=== PATIENT | male | born 1980 | race Caucasian/White ===

== ENCOUNTER 2017-08-25 11:32 | Inpatient (IN) | payer MEDICAID, OTHER ==
[2017-08-25 12:17] LABS: ADD MAN DIFF? NO
[2017-08-25 12:22] LABS: ABNORMAL IP MESSAGE 1; BASOPHIL # 0.1 10^3/ul (0.0-0.1); HEMATOCRIT 47.4 % (42.0-52.0); LYMPHOCYTES # 0.7 10^3/ul (0.8-2.9); LYMPHOCYTES % 13.2 % (15.0-51.0); MEAN CORPUSCULAR HEMOGLOBIN 28.7 pg (29.0-33.0); MEAN CORPUSCULAR HGB CONC 33.8 g/dl (32.0-37.0); MEAN CORPUSCULAR VOLUME 84.9 fl (82.0-101.0); MEAN PLATELET VOLUME 11.9 fl (7.4-10.4); MONOCYTE # 0.5 10^3/ul (0.3-0.9); MONOCYTES % 9.6 % (0.0-11.0); NEUTROPHIL # 3.7 10^3/ul (1.6-7.5); NEUTROPHILS % 74.4 % (39.0-77.0); PLATELET COUNT 139 10^3/UL (140-415); POSITIVE DIFF @See below; RED BLOOD COUNT 5.58 10^6/ul (4.70-6.10); RED CELL DISTRIBUTION WIDTH 13.7 % (11.5-14.5)
[2017-08-25] MEDS: SOD CHLORIDE 0.9% 500 ML IV ×2 (12:25→12:27)
[2017-08-25 12:44] LABS: ALANINE AMINOTRANSFERASE 69 IU/L (13-69); ALBUMIN/GLOBULIN RATIO 1.29; ALKALINE PHOSPHATASE 66 IU/L (42-121); ANION GAP 23 (8-16); ASPARTATE AMINO TRANSFERASE 40 IU/L (15-46); BILIRUBIN,INDIRECT 0.2 mg/dl (0-1.1); BILIRUBIN,TOTAL 0.2 mg/dl (0.2-1.3); BLOOD UREA NITROGEN 19 mg/dl (7-20); CALCIUM 8.3 mg/dl (8.4-10.2); CARBON DIOXIDE 24 mmol/L (21-31); CHLORIDE 89 mmol/L (97-110); CREATININE 1.74 mg/dl (0.61-1.24); LIPASE 28 U/L (23-300); POTASSIUM 4.8 mmol/L (3.5-5.1); SODIUM 131 mmol/L (135-144); TOTAL PROTEIN 7.1 g/dl (6.1-8.1)
[2017-08-25] MEDS: ALBUTEROL 0.5% (NEB) 2.5 MG/0.5 ML AMP INH (12:51)
[2017-08-25 12:55] LABS: B-TYPE NATRIURETIC PEPTIDE 2440 PG/ML (0-125); GLUCOSE 622 mg/dl (70-220)
[2017-08-25 13:03] LABS: TROPONIN-I < 0.012 ng/ml (0.00-0.12)
[2017-08-25] MEDS: LEVOFLOXACIN 750MG/D5W (PMX) 150 ML IVPB (13:10)
[2017-08-25] MEDS: FUROSEMIDE 40 MG INJ IV (13:10)
[2017-08-25] MEDS: INSULIN LISPRO 100 UNIT/ML VIAL SC (13:13)
[2017-08-25 13:22] LABS: AADO2 Arterial 236.3 mmHg (7.0-24.0); Allen Test ACCEPTAB; Arterial Base Excess -6.4 mmol/L (-3.0-3); Arterial COHb 0.5 % (0.0-3.0); Arterial Fraction of Oxyhgb 95.2 % (93.0-99.0); Arterial HCO3 17.9 mmol/L (22.0-26.0); Arterial MetHb 0.3 % (0.0-1.5); Arterial Total Hemglobin 16.7 g/dl (12.0-18.0); Arterial pCO2 32.7 mmhg (35-45); Blood Gas IEPAP 20/8; Blood Gas PS 12; MODE MASK - BIPAP; Site Right Radial
[2017-08-25] MEDS: OXYCODONE/ACETAMINOPHEN (5/325) TAB PO (13:46)
[2017-08-25] MEDS: ASPIRIN 81 MG TAB PO (13:46)
[2017-08-25] MEDS: SOD CHLORIDE 0.9% 1,000 ML IV ×2 (14:15→23:46)
[2017-08-25] MEDS ORDERED: DOCUSATE SODIUM 100 MG CAP PO (14:30)
[2017-08-25] MEDS ORDERED: NACL 0.9% 3 ML SYG IV (14:30)
[2017-08-25] MEDS ORDERED: MAGNESIUM HYDROXIDE 30ML CUP PO (14:30)
[2017-08-25] MEDS ORDERED: ONDANSETRON 4 MG INJ IV (14:30)
[2017-08-25] MEDS ORDERED: hydrALAzine 20 MG INJ IV (14:30)
[2017-08-25] MEDS ORDERED: NA PHOSPHATE/BIPHOS 133 ML ENEMA PR (14:30)
[2017-08-25] MEDS ORDERED: ALBUTEROL/IPRATROPIUM (NEB) 3 ML AMP HHN (14:30)
[2017-08-25] MEDS ORDERED: NITROGLYCERIN (SL) 0.4 MG TAB SL (14:30)
[2017-08-25] MEDS ORDERED: HYDROCODONE/APAP (5/325) TAB PO (14:30)
[2017-08-25 14:36] LABS: LACTIC ACID 5.1 mmol/L (0.5-2.0)
[2017-08-25 15:44] LABS: HAAIG REFLEX REFLEX FILED
[2017-08-25 16:06] LABS: PROTIME 16.4 Sec (11.9-14.9); PT RATIO 1.3
[2017-08-25 16:07] LABS: PARTIAL THROMBOPLASTIN TIME 41.3 Sec (25.0-35.0)
[2017-08-25] MEDS ORDERED: GLUCAGON 1 MG INJ IM (16:30)
[2017-08-25] MEDS ORDERED: GLUCOSE GEL 15 GRAM TUBE BUCCAL (16:30)
[2017-08-25] MEDS ORDERED: GLUCOSE GEL 15 GRAM TUBE PO ×2 (16:30)
[2017-08-25] MEDS ORDERED: DEXTROSE 50% 50 ML SYRINGE IV ×2 (16:30)
[2017-08-25 16:33] LABS: FREE T4 (FREE THYROXINE) 1.31 ng/dl (0.79-2.35)
[2017-08-25] MEDS: INSULIN ASPART [NOVOLOG] 3 ML PEN SC ×2 (16:37→20:36)
[2017-08-25 16:46] LABS: HEPATITIS B SURFACE ANTIGEN NEGATIVE (NEGATIVE)
[2017-08-25] MEDS: VANCOMYCIN 1 GM (PMX) 250 ML IVPB (16:51)
[2017-08-25 17:04] LABS: HEPATITIS B CORE ANTIBODY NEGATIVE (NEGATIVE); HEPATITIS C VIRAL ANTIBODY NEGATIVE (NEGATIVE)
[2017-08-25 17:10] LABS: HIV 1&2 ANTIBODY NEGATIVE (NEGATIVE)
[2017-08-25] MEDS: morphine 2 MG INJ IV (17:21)
[2017-08-25] MEDS ORDERED: FUROSEMIDE 40 MG INJ IV (18:00)
[2017-08-25 18:20] LABS: LACTIC ACID 5.4 mmol/L (0.5-2.0)
[2017-08-25] MEDS: SOD CHLORIDE 0.45% 1,000 ML IV ×2 (19:36→23:46)
[2017-08-25] MEDS: PIPER-TAZO 3.375 GM IV (PMX) 50 ML IVPB ×2 (19:56→23:38)
[2017-08-25] MEDS: INSULIN GLARGINE [LANtus] 3 ML PEN SC (20:34)
[2017-08-25] MEDS: HEPARIN 5,000 UNIT/0.5 ML VIAL SC (20:37)
[2017-08-26] MEDS: INSULIN ASPART [NOVOLOG] 3 ML PEN SC ×6 (00:09→21:59)
[2017-08-26] MEDS: morphine 2 MG INJ IV (00:09)
[2017-08-26] MEDS: LORAZEPAM 2 MG INJ IV (00:09)
[2017-08-26 01:45] LABS: LACTIC ACID 5.7 mmol/L (0.5-2.0)
[2017-08-26 02:19] LABS: AADO2 Arterial 254.2 mmHg (7.0-24.0); Allen Test ACCEPTAB; Arterial Base Excess -8.5 mmol/L (-3.0-3); Arterial Blood Gas Oxygen Sat 85.2 mmHG (95.0-98.0); Arterial COHb 0.3 % (0.0-3.0); Arterial Fraction of Oxyhgb 84.8 % (93.0-99.0); Arterial HCO3 18.7 mmol/L (22.0-26.0); Arterial MetHb 0.2 % (0.0-1.5); Arterial Total Hemglobin 16.4 g/dl (12.0-18.0); Arterial pCO2 44.2 mmhg (35-45); Blood Gas IEPAP 20/8; MODE MASK - BIPAP; Site Right Radial
[2017-08-26] MEDS: ACCU-CHEK XX (02:40)
[2017-08-26 06:10] LABS: ADD MAN DIFF? NO
[2017-08-26 06:29] LABS: WHITE BLOOD COUNT 5.9 10^3/ul (4.8-10.8)
[2017-08-26 06:29] LABS: ABNORMAL IP MESSAGE 1; BASOPHIL # 0.1 10^3/ul (0.0-0.1); BASOPHILS % 0.8 % (0.0-2.0); HEMATOCRIT 43.1 % (42.0-52.0); HEMOGLOBIN 15.1 g/dl (14.0-18.0); LYMPHOCYTES # 0.7 10^3/ul (0.8-2.9); LYMPHOCYTES % 12.6 % (15.0-51.0); MEAN CORPUSCULAR HEMOGLOBIN 29.3 pg (29.0-33.0); MEAN CORPUSCULAR VOLUME 83.7 fl (82.0-101.0); MEAN PLATELET VOLUME 12.5 fl (7.4-10.4); MONOCYTE # 0.6 10^3/ul (0.3-0.9); MONOCYTES % 10.2 % (0.0-11.0); NEUTROPHIL # 4.5 10^3/ul (1.6-7.5); NEUTROPHILS % 75.9 % (39.0-77.0); PLATELET COUNT 139 10^3/UL (140-415); POSITIVE DIFF @See below; RED BLOOD COUNT 5.15 10^6/ul (4.70-6.10); RED CELL DISTRIBUTION WIDTH 14.1 % (11.5-14.5)
[2017-08-26] MEDS: PIPER-TAZO 3.375 GM IV (PMX) 50 ML IVPB ×3 (06:32→17:29)
[2017-08-26] MEDS: PANTOPRAZOLE (EC) 40 MG TAB PO (06:33)
[2017-08-26] MEDS ORDERED: MIDAZOLAM 1 MG/ML 2 ML INJ (07:00)
[2017-08-26] MEDS ORDERED: ETOMIDATE 20 MG INJ (07:00)
[2017-08-26 07:10] LABS: CHOL/HDL RATIO 9.1 RATIO; HDL CHOLESTEROL 16 mg/dl (28-63)
[2017-08-26 07:14] LABS: LACTIC ACID 4.4 mmol/L (0.5-2.0)
[2017-08-26] MEDS: ACETAMINOPHEN 325 MG TAB PO ×2 (07:25→07:26)
[2017-08-26] MEDS: ACETAMINOPHEN 650 MG SUPP PR ×2 (07:26→21:22)
[2017-08-26] MEDS: SOD CHLORIDE 0.45% 1,000 ML IV ×2 (07:41→17:15)
[2017-08-26 07:42] LABS: THYROID STIMULATING HORMONE 0.456 MIU/L (0.465-4.680)
[2017-08-26 07:43] LABS: CHOLESTEROL 147 mg/dl (100-200)
[2017-08-26 07:46] LABS: TRIGLYCERIDES 675 mg/dl (0-149)
[2017-08-26 07:48] LABS: ANION GAP 22 (8-16); BLOOD UREA NITROGEN 28 mg/dl (7-20); CALCIUM 8.2 mg/dl (8.4-10.2); CARBON DIOXIDE 21 mmol/L (21-31); CHLORIDE 99 mmol/L (97-110); CREATININE 1.68 mg/dl (0.61-1.24); GLUCOSE 307 mg/dl (70-220); MAGNESIUM 1.1 mg/dl (1.7-2.5); PHOSPHORUS 3.3 mg/dl (2.5-4.9); POTASSIUM 4.2 mmol/L (3.5-5.1); SODIUM 138 mmol/L (135-144)
[2017-08-26 07:52] LABS: Allen Test ACCEPTAB; Arterial Base Excess -3.3 mmol/L (-3.0-3); Arterial Blood Gas Oxygen Sat 97.4 mmHG (95.0-98.0); Arterial COHb 0.2 % (0.0-3.0); Arterial HCO3 22.3 mmol/L (22.0-26.0); Arterial MetHb 0.2 % (0.0-1.5); Arterial Total Hemglobin 16.1 g/dl (12.0-18.0); Arterial pCO2 42.2 mmhg (35-45); Blood Gas IEPAP 20/8; MODE MASK - BIPAP; Site Right Radial
[2017-08-26] MEDS: LEVALBUTEROL (NEB) 1.25 MG/0.5 ML AMP INH (08:19)
[2017-08-26] MEDS: IPRATROPIUM (NEB) 0.5 MG/2.5 ML AMP INH (08:19)
[2017-08-26 08:51] LABS: HEMOGLOBIN A1C 12.5 % (0-5.9)
[2017-08-26 08:54] LABS: BAND NEUTROPHILS #M 0.8 10^3/ul (0.0-0.6); BAND NEUTROPHILS % (M) 14 % (0-4); BURR CELLS 1+ (0-0); GIANT THROMBO% (M) 1 % (0-0); LYMPHOCYTES #M 1.2 10^3/ul (0.8-2.9); LYMPHOCYTES % (M) 21 % (15-51); METAMYELOCYTES #M 0.2 10^3/ul (0.0-0.0); METAMYELOCYTES %M 5 % (0-0); MONOCYTE #M 1.3 10^3/ul (0.3-0.9); MONOCYTES % (M) 23 % (0-11); MYELOCYTES #M 0.1 10^3/ul (0.0-0.0); MYELOCYTES % (M) 2 % (0-0); PLATELET ESTIMATE DECREASED; POIKILOCYTOSIS 1+ (0-0); POLYCHROMASIA 1+ (0-0); REACTIVE LYMPHOCYTES% (M) 1 % (0-0); SEG NEUT #M 2.1 10^3/ul (1.7-7.5); SEGMENTED NEUTROPHILS (M) % 34 % (39-77); SMUDGE%M 8 % (0-0)
[2017-08-26] MEDS: ETOMIDATE 20 MG INJ IV (09:35)
[2017-08-26] MEDS: SUCCINYLCHOLINE CHLORIDE 100 MG/5 ML SYG IV (09:36)
[2017-08-26] MEDS ORDERED: VANCOMYCIN IV PER PHARMACY XX (10:00)
[2017-08-26] MEDS: ATORVASTATIN 40 MG TAB PO ×2 (10:00→21:00)
[2017-08-26] MEDS: HYDROmorphONE 1 MG/ML SYG IV ×2 (10:08→14:08)
[2017-08-26] MEDS: PROPOFOL 100 ML IV ×2 (10:09→23:21)
[2017-08-26 10:35] LABS: AADO2 Arterial 588.1 mmHg (7.0-24.0); Allen Test ACCEPTAB; Arterial Base Excess -5.4 mmol/L (-3.0-3); Arterial Blood Gas Oxygen Sat 93.4 mmHG (95.0-98.0); Arterial COHb 0.4 % (0.0-3.0); Arterial Fraction of Oxyhgb 92.8 % (93.0-99.0); Arterial HCO3 22.5 mmol/L (22.0-26.0); Arterial MetHb 0.2 % (0.0-1.5); Arterial Total Hemglobin 15.6 g/dl (12.0-18.0); Arterial pCO2 53.3 mmhg (35-45); MODE VENT - AC; Site Right Radial
[2017-08-26] MEDS: SOD CHLORIDE 0.9% 1,000 ML IV ×4 (10:41→23:03)
[2017-08-26] MEDS: MIDAZOLAM 1 MG/ML 5 ML INJ IV (11:00)
[2017-08-26] MEDS: HEPARIN 5,000 UNIT/0.5 ML VIAL SC ×2 (11:00→22:01)
[2017-08-26] MEDS: MIDAZOLAM (DRIP) 50 mg/50 mL 50 ML IV (11:12)
[2017-08-26] MEDS: VANCOMYCIN 1 GM in 250 ML IVPB ×2 (11:30→15:15)
[2017-08-26] MEDS: MAGNESIUM SULFATE 4 GM/100 ML 100 ML IVPB (11:46)
[2017-08-26 12:15] LABS: ADD UMIC YES; UR AMORPHOUS CRYSTAL FEW /HPF (NONE SEEN); UR ASCORBIC ACID 20 mg/dL (NEGATIVE); UR BACTERIA FEW /HPF (NONE SEEN); UR BILIRUBIN (Dip) NEGATIVE (NEGATIVE); UR BLOOD (Dip) 3+ mg/dL (NEGATIVE); UR BUDDING YEAST FEW /HPF (NONE SEEN); UR CLARITY CLOUDY (CLEAR); UR COLOR AMBER (YELLOW); UR GLUCOSE (Dip) 3+ mg/dL (NEGATIVE); UR KETONES (Dip) TRACE mg/dL (NEGATIVE); UR LEUKOCYTE ESTERASE (Dip) NEGATIVE Leu/ul (NEGATIVE); UR NITRITE (Dip) NEGATIVE (NEGATIVE); UR RBC 0 /HPF (0-5); UR SPECIFIC GRAVITY (Dip) 1.023 (1.003-1.030); UR TOTAL PROTEIN (Dip) 2+ mg/dl (NEGATIVE); UR UROBILINOGEN (Dip) NEGATIVE (NEGATIVE); UR WBC 5 /HPF (0-5)
[2017-08-26] MEDS: VECURONIUM 10 MG VIAL IV (14:08)
[2017-08-26 14:33] LABS: LACTIC ACID 2.5 mmol/L (0.5-2.0)
[2017-08-26] MEDS: FENTAnyl (DRIP) 1000 mcg/100mL 100 ML IV (15:16)
[2017-08-26 19:21] LABS: LACTIC ACID 3.1 mmol/L (0.5-2.0)
[2017-08-26] MEDS: INSULIN GLARGINE [LANtus] 3 ML PEN SC (20:54)
[2017-08-26] MEDS ORDERED: ACETAMINOPHEN 650 MG SUPP PR (21:08)
[2017-08-26] MEDS: VANCOMYCIN 1.5 GM in DEXTROSE 5% 500 ML IVPB (23:03)
[2017-08-27] MEDS: SOD CHLORIDE 0.45% 1,000 ML IV ×4 (00:45→23:54)
[2017-08-27] MEDS: INSULIN ASPART [NOVOLOG] 3 ML PEN SC ×3 (01:00→12:27)
[2017-08-27] MEDS: ACCU-CHEK XX ×8 (01:45→23:54)
[2017-08-27] MEDS: SOD CHLORIDE 0.9% 500 ML IV (02:00)
[2017-08-27] MEDS: SOD CHLORIDE 0.9% 1,000 ML IV ×2 (02:00→04:53)
[2017-08-27] MEDS: PIPER-TAZO 3.375 GM IV (PMX) 50 ML IVPB ×5 (03:09→23:55)
[2017-08-27] MEDS: PANTOPRAZOLE 40 MG INJ IV (05:25)
[2017-08-27 06:05] LABS: ADD MAN DIFF? NO
[2017-08-27 06:17] LABS: ABNORMAL IP MESSAGE 1; BASOPHIL # 0.1 10^3/ul (0.0-0.1); BASOPHILS % 0.8 % (0.0-2.0); HEMATOCRIT 33.8 % (42.0-52.0); HEMOGLOBIN 11.7 g/dl (14.0-18.0); LYMPHOCYTES # 0.9 10^3/ul (0.8-2.9); LYMPHOCYTES % 14.1 % (15.0-51.0); MEAN CORPUSCULAR HEMOGLOBIN 30.2 pg (29.0-33.0); MEAN CORPUSCULAR HGB CONC 34.6 g/dl (32.0-37.0); MEAN CORPUSCULAR VOLUME 87.3 fl (82.0-101.0); MEAN PLATELET VOLUME 12.4 fl (7.4-10.4); MONOCYTE # 0.5 10^3/ul (0.3-0.9); MONOCYTES % 7.6 % (0.0-11.0); NEUTROPHIL # 4.6 10^3/ul (1.6-7.5); NEUTROPHILS % 73.2 % (39.0-77.0); PLATELET COUNT 147 10^3/UL (140-415); POSITIVE DIFF @See below; RED BLOOD COUNT 3.87 10^6/ul (4.70-6.10); RED CELL DISTRIBUTION WIDTH 15.1 % (11.5-14.5)
[2017-08-27 06:17] LABS: WHITE BLOOD COUNT 6.3 10^3/ul (4.8-10.8)
[2017-08-27 06:45] LABS: ANION GAP 16 (8-16); BLOOD UREA NITROGEN 28 mg/dl (7-20); CALCIUM 7.2 mg/dl (8.4-10.2); CARBON DIOXIDE 23 mmol/L (21-31); CHLORIDE 105 mmol/L (97-110); GLUCOSE 285 mg/dl (70-220); POTASSIUM 4.3 mmol/L (3.5-5.1); SODIUM 140 mmol/L (135-144)
[2017-08-27] MEDS: ACETAMINOPHEN 650 MG SUPP PR (07:18)
[2017-08-27] MEDS: HEPARIN 5,000 UNIT/0.5 ML VIAL SC ×2 (09:07→20:16)
[2017-08-27] MEDS: VANCOMYCIN 1.5 GM in DEXTROSE 5% 500 ML IVPB ×2 (09:14→23:54)
[2017-08-27 13:36] LABS: AADO2 Arterial 596.1 mmHg (7.0-24.0); Allen Test ACCEPTAB; Arterial Base Excess -5.3 mmol/L (-3.0-3); Arterial Blood Gas Oxygen Sat 90.3 mmHG (95.0-98.0); Arterial COHb 0.3 % (0.0-3.0); Arterial Fraction of Oxyhgb 89.8 % (93.0-99.0); Arterial HCO3 22.8 mmol/L (22.0-26.0); Arterial MetHb 0.3 % (0.0-1.5); Arterial Total Hemglobin 13.1 g/dl (12.0-18.0); Arterial pCO2 56.2 mmhg (35-45); MODE VENT - AC; Site Right Radial
[2017-08-27] MEDS: MIDAZOLAM (DRIP) 50 mg/50 mL 50 ML IV ×2 (15:06→20:25)
[2017-08-27] MEDS: FENTAnyl (DRIP) 1000 mcg/100mL 100 ML IV ×2 (15:14→19:08)
[2017-08-27] MEDS: ACETAMINOPHEN 650MG/20.3ML CUP GTB ×2 (15:55→23:57)
[2017-08-27] MEDS ORDERED: DEXTROSE 50% 50 ML SYRINGE IV ×2 (16:30)
[2017-08-27] MEDS: INSULIN HUMAN REGULAR 100 UNIT in SOD CHLORIDE 0.9% 99 ML IV (18:00)
[2017-08-27] MEDS ORDERED: INSULIN GLARGINE [LANtus] 3 ML PEN SC (20:00)
[2017-08-27] MEDS: ATORVASTATIN 40 MG TAB PO (20:14)
[2017-08-27 22:15] LABS: VANCOMYCIN,TROUGH 12.2 ug/ml (10.0-20.0)
[2017-08-28] MEDS: ACCU-CHEK XX ×23 (01:35→23:12)
[2017-08-28] MEDS: MIDAZOLAM (DRIP) 50 mg/50 mL 50 ML IV ×4 (03:15→21:24)
[2017-08-28] MEDS: INSULIN HUMAN REGULAR 100 UNIT in SOD CHLORIDE 0.9% 99 ML IV (03:19)
[2017-08-28 05:24] LABS: ABNORMAL IP MESSAGE 1; HEMATOCRIT 35.7 % (42.0-52.0); HEMOGLOBIN 11.5 g/dl (14.0-18.0); MEAN CORPUSCULAR HEMOGLOBIN 28.7 pg (29.0-33.0); MEAN CORPUSCULAR HGB CONC 32.2 g/dl (32.0-37.0); MEAN PLATELET VOLUME 12.1 fl (7.4-10.4); NUCLEATED RED BLOOD CELLS% 0.2 /100WBC (0.0-0.0); PLATELET COUNT 162 10^3/UL (140-415); POSITIVE DIFF @See below; RED BLOOD COUNT 4.01 10^6/ul (4.70-6.10); RED CELL DISTRIBUTION WIDTH 15.9 % (11.5-14.5)
[2017-08-28 05:30] LABS: ADD MAN DIFF? YES
[2017-08-28] MEDS: PIPER-TAZO 3.375 GM IV (PMX) 50 ML IVPB ×3 (05:38→17:25)
[2017-08-28] MEDS: PANTOPRAZOLE 40 MG INJ IV (05:38)
[2017-08-28 06:06] LABS: ANION GAP 15 (8-16); BLOOD UREA NITROGEN 27 mg/dl (7-20); CALCIUM 8.2 mg/dl (8.4-10.2); CARBON DIOXIDE 25 mmol/L (21-31); CHLORIDE 109 mmol/L (97-110); CREATININE 2.21 mg/dl (0.61-1.24); GLUCOSE 141 mg/dl (70-220); POTASSIUM 4.3 mmol/L (3.5-5.1); SODIUM 145 mmol/L (135-144)
[2017-08-28] MEDS: SOD CHLORIDE 0.45% 1,000 ML IV ×2 (08:34→15:25)
[2017-08-28] MEDS: HEPARIN 5,000 UNIT/0.5 ML VIAL SC ×2 (08:38→21:30)
[2017-08-28] MEDS: ACETAMINOPHEN 650MG/20.3ML CUP GTB ×4 (09:54→23:12)
[2017-08-28 10:28] LABS: ANISOCYTOSIS 1+ (0-0); BAND NEUTROPHILS #M 1.3 10^3/ul (0.0-0.6); BAND NEUTROPHILS % (M) 15 % (0-4); BASOPHIL #M 0.1 10^3/ul (0.0-0.0); BASOPHILS % (M) 2 % (0-2); BURR CELLS 2+ (0-0); EOSINOPHILS % (M) 1 % (0-7); GIANT THROMBO% (M) 1 % (0-0); LYMPHOCYTES #M 1.7 10^3/ul (0.8-2.9); LYMPHOCYTES % (M) 19 % (15-51); MONOCYTE #M 0.4 10^3/ul (0.3-0.9); MONOCYTES % (M) 5 % (0-11); MYELOCYTES #M 0.2 10^3/ul (0.0-0.0); MYELOCYTES % (M) 3 % (0-0); PLATELET ESTIMATE NORMAL; POIKILOCYTOSIS 1+ (0-0); POLYCHROMASIA 3+ (0-0); PROMYELOCYTES % (M) 1 % (0-0); REACTIVE LYMPHOCYTES% (M) 1 % (0-0); SEG NEUT #M 4.9 10^3/ul (1.7-7.5); SEGMENTED NEUTROPHILS (M) % 53 % (39-77); SMUDGE%M 2 % (0-0)
[2017-08-28] MEDS: VANCOMYCIN 1.5 GM in DEXTROSE 5% 500 ML IVPB ×2 (10:57→21:32)
[2017-08-28 11:38] LABS: AADO2 Arterial 591.5 mmHg (7.0-24.0); Allen Test ACCEPTAB; Arterial Base Excess -5.2 mmol/L (-3.0-3); Arterial Blood Gas Oxygen Sat 95.6 mmHG (95.0-98.0); Arterial COHb 0.3 % (0.0-3.0); Arterial Fraction of Oxyhgb 95.1 % (93.0-99.0); Arterial HCO3 20.9 mmol/L (22.0-26.0); Arterial MetHb 0.2 % (0.0-1.5); Arterial Total Hemglobin 12.2 g/dl (12.0-18.0); Arterial pCO2 42.5 mmhg (35-45); MODE VENT - AC; Site Right Radial
[2017-08-28 12:52] LABS: LACTIC ACID 1.3 mmol/L (0.5-2.0)
[2017-08-28] MEDS: LEVOFLOXACIN 250MG/D5W (PMX) 50 ML IVPB (14:10)
[2017-08-28] MEDS: METHYLPREDNISOLONE 40 MG INJ IV ×2 (14:10→18:14)
[2017-08-28] MEDS: LIDOCAINE 1% (MPF) 5 ML VIAL SC (16:45)
[2017-08-28 19:12] LABS: LACTIC ACID 1.3 mmol/L (0.5-2.0)
[2017-08-28] MEDS: ATORVASTATIN 40 MG TAB PO (21:26)
[2017-08-28] MEDS: FENTAnyl (DRIP) 1000 mcg/100mL 100 ML IV (21:28)
[2017-08-29] MEDS: ACCU-CHEK XX ×25 (00:06→23:55)
[2017-08-29] MEDS: PIPER-TAZO 3.375 GM IV (PMX) 50 ML IVPB ×5 (00:11→23:55)
[2017-08-29] MEDS: METHYLPREDNISOLONE 40 MG INJ IV ×5 (00:11→23:54)
[2017-08-29] MEDS: INSULIN HUMAN REGULAR 100 UNIT in SOD CHLORIDE 0.9% 99 ML IV ×3 (00:42→18:42)
[2017-08-29 01:55] LABS: LACTIC ACID 1.4 mmol/L (0.5-2.0)
[2017-08-29] MEDS: ACETAMINOPHEN 650MG/20.3ML CUP GTB ×3 (03:52→19:45)
[2017-08-29] MEDS: SOD CHLORIDE 0.45% 1,000 ML IV ×3 (03:52→17:11)
[2017-08-29] MEDS: MIDAZOLAM (DRIP) 50 mg/50 mL 50 ML IV ×3 (03:52→18:39)
[2017-08-29 05:37] LABS: ADD MAN DIFF? NO
[2017-08-29 05:43] LABS: WHITE BLOOD COUNT 9.3 10^3/ul (4.8-10.8)
[2017-08-29 05:43] LABS: ABNORMAL IP MESSAGE 1; BASOPHILS % 0.3 % (0.0-2.0); HEMOGLOBIN 10.6 g/dl (14.0-18.0); LYMPHOCYTES % 10.8 % (15.0-51.0); MEAN CORPUSCULAR HEMOGLOBIN 28.9 pg (29.0-33.0); MEAN CORPUSCULAR HGB CONC 32.1 g/dl (32.0-37.0); MEAN CORPUSCULAR VOLUME 89.9 fl (82.0-101.0); MEAN PLATELET VOLUME 12.1 fl (7.4-10.4); MONOCYTE # 0.5 10^3/ul (0.3-0.9); MONOCYTES % 5.4 % (0.0-11.0); NEUTROPHIL # 7.1 10^3/ul (1.6-7.5); NEUTROPHILS % 76.8 % (39.0-77.0); NUCLEATED RED BLOOD CELLS% 0.4 /100WBC (0.0-0.0); PLATELET COUNT 168 10^3/UL (140-415); POSITIVE DIFF @See below; RED BLOOD COUNT 3.67 10^6/ul (4.70-6.10); RED CELL DISTRIBUTION WIDTH 16.8 % (11.5-14.5)
[2017-08-29] MEDS: PANTOPRAZOLE 40 MG INJ IV (06:08)
[2017-08-29 06:20] LABS: LACTIC ACID 1.5 mmol/L (0.5-2.0)
[2017-08-29 06:21] LABS: ANION GAP 15 (8-16); BLOOD UREA NITROGEN 33 mg/dl (7-20); CALCIUM 8.5 mg/dl (8.4-10.2); CARBON DIOXIDE 25 mmol/L (21-31); CHLORIDE 109 mmol/L (97-110); CREATININE 2.79 mg/dl (0.61-1.24); GLUCOSE 212 mg/dl (70-220); POTASSIUM 4.3 mmol/L (3.5-5.1); SODIUM 145 mmol/L (135-144)
[2017-08-29] MEDS: VANCOMYCIN 1.5 GM in DEXTROSE 5% 500 ML IVPB (09:29)
[2017-08-29] MEDS: HEPARIN 5,000 UNIT/0.5 ML VIAL SC ×2 (09:33→21:13)
[2017-08-29] MEDS ORDERED: IBUPROFEN 600 MG TAB PO (10:30)
[2017-08-29] MEDS: FENTAnyl (DRIP) 1000 mcg/100mL 100 ML IV (10:54)
[2017-08-29 11:26] LABS: AADO2 Arterial 467.3 mmHg (7.0-24.0); Allen Test ACCEPTAB; Arterial Base Excess -5.8 mmol/L (-3.0-3); Arterial Blood Gas Oxygen Sat 91.6 mmHG (95.0-98.0); Arterial COHb 0.3 % (0.0-3.0); Arterial Fraction of Oxyhgb 91.1 % (93.0-99.0); Arterial HCO3 19.9 mmol/L (22.0-26.0); Arterial MetHb 0.2 % (0.0-1.5); Arterial Total Hemglobin 11.5 g/dl (12.0-18.0); Arterial pCO2 39.9 mmhg (35-45); MODE VENT - AC; Site Right Radial
[2017-08-29 12:39] LABS: LACTIC ACID 1.5 mmol/L (0.5-2.0)
[2017-08-29] MEDS: PHENYLephrine 20MG IN 250 ML 250 ML IV (12:45)
[2017-08-29] MEDS: LEVOFLOXACIN 250MG/D5W (PMX) 50 ML IVPB (14:35)
[2017-08-29 19:25] LABS: LACTIC ACID 1.4 mmol/L (0.5-2.0)
[2017-08-29] MEDS: ATORVASTATIN 40 MG TAB PO (21:10)
[2017-08-30] MEDS: SOD CHLORIDE 0.45% 1,000 ML IV ×4 (00:30→16:30)
[2017-08-30] MEDS: ACETAMINOPHEN 1000MG/100ML IV 100 ML IVPB (01:00)
[2017-08-30] MEDS: ACCU-CHEK XX ×23 (01:24→23:00)
[2017-08-30] MEDS: FENTAnyl (DRIP) 1000 mcg/100mL 100 ML IV ×3 (02:02→22:59)
[2017-08-30] MEDS: MIDAZOLAM (DRIP) 50 mg/50 mL 50 ML IV ×4 (02:43→22:59)
[2017-08-30] MEDS: INSULIN HUMAN REGULAR 100 UNIT in SOD CHLORIDE 0.9% 99 ML IV ×2 (05:22→14:45)
[2017-08-30] MEDS: METHYLPREDNISOLONE 40 MG INJ IV ×3 (05:36→17:17)
[2017-08-30] MEDS: PANTOPRAZOLE 40 MG INJ IV (05:36)
[2017-08-30] MEDS: PIPER-TAZO 3.375 GM IV (PMX) 50 ML IVPB (05:42)
[2017-08-30 05:52] LABS: ADD MAN DIFF? NO
[2017-08-30 05:56] LABS: WHITE BLOOD COUNT 9.4 10^3/ul (4.8-10.8)
[2017-08-30 05:56] LABS: ABNORMAL IP MESSAGE 1; BASOPHILS % 0.1 % (0.0-2.0); HEMATOCRIT 32.4 % (42.0-52.0); HEMOGLOBIN 10.5 g/dl (14.0-18.0); LYMPHOCYTES # 1.1 10^3/ul (0.8-2.9); LYMPHOCYTES % 12.1 % (15.0-51.0); MEAN CORPUSCULAR HEMOGLOBIN 29.1 pg (29.0-33.0); MEAN CORPUSCULAR HGB CONC 32.4 g/dl (32.0-37.0); MEAN CORPUSCULAR VOLUME 89.8 fl (82.0-101.0); MEAN PLATELET VOLUME 12.1 fl (7.4-10.4); MONOCYTE # 0.4 10^3/ul (0.3-0.9); MONOCYTES % 4.7 % (0.0-11.0); NEUTROPHIL # 7.1 10^3/ul (1.6-7.5); NEUTROPHILS % 74.8 % (39.0-77.0); NUCLEATED RED BLOOD CELLS # 0.2 10^3/ul (0.0-0.0); PLATELET COUNT 178 10^3/UL (140-415); POSITIVE DIFF @See below; RED BLOOD COUNT 3.61 10^6/ul (4.70-6.10); RED CELL DISTRIBUTION WIDTH 17.2 % (11.5-14.5)
[2017-08-30 06:20] LABS: ANION GAP 16 (8-16); BLOOD UREA NITROGEN 48 mg/dl (7-20); CALCIUM 8.1 mg/dl (8.4-10.2); CARBON DIOXIDE 22 mmol/L (21-31); CHLORIDE 112 mmol/L (97-110); CREATININE 3.52 mg/dl (0.61-1.24); GLUCOSE 216 mg/dl (70-220); POTASSIUM 4.3 mmol/L (3.5-5.1); SODIUM 146 mmol/L (135-144)
[2017-08-30 07:14] LABS: BAND NEUTROPHILS #M 1.2 10^3/ul (0.0-0.6); BAND NEUTROPHILS % (M) 13 % (0-4); ERYTHROBLAST% (NRBC) (M) 2 % (0-0); HYPOCHROMASIA 1+ (0-0); LYMPHOCYTES #M 1.2 10^3/ul (0.8-2.9); LYMPHOCYTES % (M) 13 % (15-51); METAMYELOCYTES #M 0.6 10^3/ul (0.0-0.0); METAMYELOCYTES %M 7 % (0-0); MONOCYTE #M 0.2 10^3/ul (0.3-0.9); MONOCYTES % (M) 3 % (0-11); MYELOCYTES #M 0.2 10^3/ul (0.0-0.0); MYELOCYTES % (M) 3 % (0-0); PLATELET ESTIMATE NORMAL; POLYCHROMASIA 3+ (0-0); PROMYELOCYTES % (M) 1 % (0-0); SEG NEUT #M 5.8 10^3/ul (1.7-7.5); SEGMENTED NEUTROPHILS (M) % 60 % (39-77)
[2017-08-30] MEDS: HEPARIN 5,000 UNIT/0.5 ML VIAL SC ×2 (08:37→20:54)
[2017-08-30] MEDS ORDERED: VANCOMYCIN 1 GM 250 ML IVPB (09:00)
[2017-08-30] MEDS: PIPER-TAZO 2.25 GM (PMX) 50 ML IVPB ×2 (11:29→17:05)
[2017-08-30 11:54] LABS: LACTIC ACID 1.3 mmol/L (0.5-2.0)
[2017-08-30] MEDS: LEVOFLOXACIN 250MG/D5W (PMX) 50 ML IVPB (14:41)
[2017-08-30] MEDS: LORAZEPAM 2 MG INJ IV (16:32)
[2017-08-30 16:57] LABS: AADO2 Arterial 447.9 mmHg (7.0-24.0); Allen Test ACCEPTAB; Arterial Base Excess -4.7 mmol/L (-3.0-3); Arterial COHb 0.3 % (0.0-3.0); Arterial Fraction of Oxyhgb 87.6 % (93.0-99.0); Arterial HCO3 23.6 mmol/L (22.0-26.0); Arterial MetHb 0.2 % (0.0-1.5); Arterial Total Hemglobin 12.4 g/dl (12.0-18.0); Arterial pCO2 58.6 mmhg (35-45); MODE VENT - AC; Site Right Radial
[2017-08-30] MEDS: VANCOMYCIN 1.5 GM in DEXTROSE 5% 500 ML IVPB (17:17)
[2017-08-30] MEDS: ATORVASTATIN 40 MG TAB PO (20:41)
[2017-08-31] MEDS: PIPER-TAZO 2.25 GM (PMX) 50 ML IVPB ×3 (00:09→11:42)
[2017-08-31] MEDS: METHYLPREDNISOLONE 40 MG INJ IV ×3 (00:09→11:42)
[2017-08-31] MEDS: SOD CHLORIDE 0.45% 1,000 ML IV ×2 (00:09→08:27)
[2017-08-31] MEDS: INSULIN HUMAN REGULAR 100 UNIT in SOD CHLORIDE 0.9% 99 ML IV ×3 (00:28→14:08)
[2017-08-31] MEDS: ACCU-CHEK XX ×24 (01:24→23:00)
[2017-08-31] MEDS: PANTOPRAZOLE 40 MG INJ IV (05:55)
[2017-08-31 06:02] LABS: WHITE BLOOD COUNT 11.6 10^3/ul (4.8-10.8)
[2017-08-31 06:02] LABS: ABNORMAL IP MESSAGE 1; HEMATOCRIT 37.5 % (42.0-52.0); HEMOGLOBIN 11.7 g/dl (14.0-18.0); MEAN CORPUSCULAR HEMOGLOBIN 28.8 pg (29.0-33.0); MEAN CORPUSCULAR HGB CONC 31.2 g/dl (32.0-37.0); MEAN CORPUSCULAR VOLUME 92.4 fl (82.0-101.0); MEAN PLATELET VOLUME 12.6 fl (7.4-10.4); NUCLEATED RED BLOOD CELLS% 1.8 /100WBC (0.0-0.0); PLATELET COUNT 213 10^3/UL (140-415); POSITIVE DIFF @See below; RED BLOOD COUNT 4.06 10^6/ul (4.70-6.10); RED CELL DISTRIBUTION WIDTH 17.2 % (11.5-14.5)
[2017-08-31 06:18] LABS: AADO2 Arterial 442.3 mmHg (7.0-24.0); Allen Test ACCEPTAB; Arterial Base Excess -5.2 mmol/L (-3.0-3); Arterial Blood Gas Oxygen Sat 91.9 mmHG (95.0-98.0); Arterial COHb 0.3 % (0.0-3.0); Arterial Fraction of Oxyhgb 91.5 % (93.0-99.0); Arterial HCO3 22.9 mmol/L (22.0-26.0); Arterial MetHb 0.1 % (0.0-1.5); Arterial pCO2 56.4 mmhg (35-45); MODE VENT - AC; Site Right Radial
[2017-08-31 06:25] LABS: ADD MAN DIFF? YES
[2017-08-31 06:39] LABS: LACTIC ACID 1.1 mmol/L (0.5-2.0)
[2017-08-31 07:06] LABS: ANION GAP 17 (8-16); BLOOD UREA NITROGEN 60 mg/dl (7-20); CALCIUM 8.2 mg/dl (8.4-10.2); CARBON DIOXIDE 23 mmol/L (21-31); CHLORIDE 111 mmol/L (97-110); CREATININE 3.39 mg/dl (0.61-1.24); GLUCOSE 245 mg/dl (70-220); POTASSIUM 4.9 mmol/L (3.5-5.1); SODIUM 146 mmol/L (135-144)
[2017-08-31] MEDS: HEPARIN 5,000 UNIT/0.5 ML VIAL SC ×2 (08:18→20:24)
[2017-08-31] MEDS: FENTAnyl (DRIP) 1000 mcg/100mL 100 ML IV ×2 (08:25→17:27)
[2017-08-31] MEDS: LORAZEPAM 2 MG INJ IV (08:27)
[2017-08-31 08:43] LABS: BAND NEUTROPHILS #M 0.6 10^3/ul (0.0-0.6); BAND NEUTROPHILS % (M) 6 % (0-4); ERYTHROBLAST% (NRBC) (M) 2 % (0-0); LYMPHOCYTES #M 0.5 10^3/ul (0.8-2.9); LYMPHOCYTES % (M) 5 % (15-51); MONOCYTE #M 0.5 10^3/ul (0.3-0.9); MONOCYTES % (M) 5 % (0-11); PLATELET ESTIMATE NORMAL; SEG NEUT #M 9.8 10^3/ul (1.7-7.5); SEGMENTED NEUTROPHILS (M) % 84 % (39-77); SMUDGE%M 4 % (0-0)
[2017-08-31] MEDS: MIDAZOLAM (DRIP) 50 mg/50 mL 50 ML IV ×3 (10:54→17:26)
[2017-08-31 13:04] LABS: ADD UMIC YES; UR ASCORBIC ACID NEGATIVE (NEGATIVE); UR BILIRUBIN (Dip) NEGATIVE (NEGATIVE); UR BLOOD (Dip) 2+ mg/dL (NEGATIVE); UR CLARITY CLOUDY (CLEAR); UR COLOR YELLOW (YELLOW); UR GLUCOSE (Dip) 1+ mg/dL (NEGATIVE); UR KETONES (Dip) TRACE mg/dL (NEGATIVE); UR LEUKOCYTE ESTERASE (Dip) NEGATIVE Leu/ul (NEGATIVE); UR MUCUS FEW /HPF (NONE SEEN); UR NITRITE (Dip) NEGATIVE (NEGATIVE); UR RBC 4 /HPF (0-5); UR TOTAL PROTEIN (Dip) 1+ mg/dl (NEGATIVE); UR URIC ACID CRYSTAL FEW /HPF (NONE SEEN); UR UROBILINOGEN (Dip) NEGATIVE (NEGATIVE); UR WBC 3 /HPF (0-5)
[2017-08-31] MEDS: CEFEPIME 2GM/50 ML (PMX) 50 ML IVPB (13:51)
[2017-08-31] MEDS: LEVOFLOXACIN 250MG/D5W (PMX) 50 ML IVPB (14:14)
[2017-08-31] MEDS: INSULIN GLARGINE [LANtus] 3 ML PEN SC (20:21)
[2017-08-31] MEDS: ATORVASTATIN 40 MG TAB PO (20:27)
[2017-09-01] MEDS: MIDAZOLAM (DRIP) 50 mg/50 mL 50 ML IV ×5 (01:15→22:15)
[2017-09-01] MEDS: INSULIN HUMAN REGULAR 100 UNIT in SOD CHLORIDE 0.9% 99 ML IV ×2 (01:30→09:40)
[2017-09-01] MEDS: ACCU-CHEK XX ×17 (01:33→16:32)
[2017-09-01] MEDS: FENTAnyl (DRIP) 1000 mcg/100mL 100 ML IV ×3 (04:10→22:59)
[2017-09-01 05:19] LABS: AADO2 Arterial 416.5 mmHg (7.0-24.0); Allen Test ACCEPTAB; Arterial Base Excess -2.6 mmol/L (-3.0-3); Arterial Blood Gas Oxygen Sat 90.9 mmHG (95.0-98.0); Arterial COHb 0.3 % (0.0-3.0); Arterial Fraction of Oxyhgb 90.4 % (93.0-99.0); Arterial HCO3 24.3 mmol/L (22.0-26.0); Arterial MetHb 0.2 % (0.0-1.5); Arterial Total Hemglobin 11.1 g/dl (12.0-18.0); Arterial pCO2 51.4 mmhg (35-45); MODE VENT - AC; Site Right Radial
[2017-09-01 05:44] LABS: ADD MAN DIFF? NO
[2017-09-01 05:49] LABS: ABNORMAL IP MESSAGE 1; BASOPHILS % 0.3 % (0.0-2.0); HEMATOCRIT 37.3 % (42.0-52.0); HEMOGLOBIN 11.7 g/dl (14.0-18.0); LYMPHOCYTES # 0.8 10^3/ul (0.8-2.9); LYMPHOCYTES % 5.9 % (15.0-51.0); MEAN CORPUSCULAR HEMOGLOBIN 28.9 pg (29.0-33.0); MEAN CORPUSCULAR HGB CONC 31.4 g/dl (32.0-37.0); MEAN CORPUSCULAR VOLUME 92.1 fl (82.0-101.0); MEAN PLATELET VOLUME 12.4 fl (7.4-10.4); MONOCYTE # 0.6 10^3/ul (0.3-0.9); MONOCYTES % 4.3 % (0.0-11.0); NEUTROPHIL # 11.4 10^3/ul (1.6-7.5); NEUTROPHILS % 83.8 % (39.0-77.0); NUCLEATED RED BLOOD CELLS # 0.2 10^3/ul (0.0-0.0); NUCLEATED RED BLOOD CELLS% 1.7 /100WBC (0.0-0.0); PLATELET COUNT 221 10^3/UL (140-415); POSITIVE DIFF @See below; RED BLOOD COUNT 4.05 10^6/ul (4.70-6.10); RED CELL DISTRIBUTION WIDTH 17.1 % (11.5-14.5)
[2017-09-01 05:49] LABS: WHITE BLOOD COUNT 13.6 10^3/ul (4.8-10.8)
[2017-09-01] MEDS: PANTOPRAZOLE 40 MG INJ IV (06:01)
[2017-09-01 06:05] LABS: LACTIC ACID 1.1 mmol/L (0.5-2.0)
[2017-09-01 06:34] LABS: ALANINE AMINOTRANSFERASE 54 IU/L (13-69); ALBUMIN 2.8 g/dl (3.3-4.9); ALKALINE PHOSPHATASE 60 IU/L (42-121); ANION GAP 16 (8-16); ASPARTATE AMINO TRANSFERASE 40 IU/L (15-46); BLOOD UREA NITROGEN 74 mg/dl (7-20); CALCIUM 8.4 mg/dl (8.4-10.2); CARBON DIOXIDE 25 mmol/L (21-31); CHLORIDE 113 mmol/L (97-110); CREATININE 2.89 mg/dl (0.61-1.24); GLUCOSE 218 mg/dl (70-220); POTASSIUM 4.5 mmol/L (3.5-5.1); SODIUM 149 mmol/L (135-144); TOTAL PROTEIN 6.3 g/dl (6.1-8.1)
[2017-09-01] MEDS: predniSONE 20 MG TAB PO (09:10)
[2017-09-01] MEDS: HEPARIN 5,000 UNIT/0.5 ML VIAL SC ×2 (09:14→21:06)
[2017-09-01] MEDS: SOD CHLORIDE 0.45% 1,000 ML IV (13:12)
[2017-09-01] MEDS: FUROSEMIDE 40 MG INJ IV (14:13)
[2017-09-01 14:18] LABS: SODIUM,URINE RANDOM 14 mmol/L (30-90)
[2017-09-01 15:51] LABS: OSMOLALITY,URINE 515 mOsm/kg (250-1200)
[2017-09-01] MEDS: CEFEPIME 2GM/50 ML (PMX) 50 ML IVPB (16:03)
[2017-09-01] MEDS: LORAZEPAM 2 MG INJ IV (16:03)
[2017-09-01 17:08] LABS: ALANINE AMINOTRANSFERASE 52 IU/L (13-69); ALBUMIN 2.9 g/dl (3.3-4.9); ALBUMIN/GLOBULIN RATIO 0.82; ALKALINE PHOSPHATASE 65 IU/L (42-121); ANION GAP 11 (8-16); ASPARTATE AMINO TRANSFERASE 34 IU/L (15-46); BLOOD UREA NITROGEN 77 mg/dl (7-20); CALCIUM 8.2 mg/dl (8.4-10.2); CARBON DIOXIDE 27 mmol/L (21-31); CHLORIDE 114 mmol/L (97-110); CREATININE 2.68 mg/dl (0.61-1.24); GLUCOSE 193 mg/dl (70-220); POTASSIUM 4.5 mmol/L (3.5-5.1); SODIUM 147 mmol/L (135-144); TOTAL PROTEIN 6.4 g/dl (6.1-8.1)
[2017-09-01] MEDS ORDERED: GLUCOSE GEL 15 GRAM TUBE PO ×2 (18:00)
[2017-09-01] MEDS ORDERED: GLUCAGON 1 MG INJ IM (18:00)
[2017-09-01] MEDS ORDERED: GLUCOSE GEL 15 GRAM TUBE BUCCAL (18:00)
[2017-09-01] MEDS ORDERED: DEXTROSE 50% 50 ML SYRINGE IV ×2 (18:00)
[2017-09-01 18:18] LABS: AADO2 Arterial 539.1 mmHg (7.0-24.0); Allen Test ACCEPTAB; Arterial Base Excess -5.3 mmol/L (-3.0-3); Arterial Blood Gas Oxygen Sat 95.4 mmHG (95.0-98.0); Arterial COHb 0.3 % (0.0-3.0); Arterial Fraction of Oxyhgb 94.8 % (93.0-99.0); Arterial HCO3 22.4 mmol/L (22.0-26.0); Arterial MetHb 0.3 % (0.0-1.5); Arterial Total Hemglobin 12.9 g/dl (12.0-18.0); Arterial pCO2 52.8 mmhg (35-45); MODE VENT - PC; Site Left Radial
[2017-09-01] MEDS: INSULIN GLARGINE [LANtus] 3 ML PEN SC (19:58)
[2017-09-01] MEDS: INSULIN ASPART [NOVOLOG] 3 ML PEN SC (20:01)
[2017-09-01] MEDS ORDERED: FAMOTIDINE 20 MG TAB NGT (21:00)
[2017-09-01] MEDS: CEFEPIME 1GM/50 ML (PMX) 50 ML IVPB (21:05)
[2017-09-01] MEDS: ATORVASTATIN 40 MG TAB PO (21:05)
[2017-09-01] MEDS: OSELTAMIVIR 30 MG CAP PO (21:05)
[2017-09-02] MEDS: INSULIN ASPART [NOVOLOG] 3 ML PEN SC ×3 (01:16→09:01)
[2017-09-02] MEDS: LORAZEPAM 2 MG INJ IV ×3 (02:45→08:50)
[2017-09-02] MEDS: ACETAMINOPHEN 325 MG TAB PO (02:46)
[2017-09-02] MEDS: MIDAZOLAM (DRIP) 50 mg/50 mL 50 ML IV ×5 (04:01→22:42)
[2017-09-02 05:48] LABS: ADD MAN DIFF? NO
[2017-09-02 05:58] LABS: BASOPHILS % 0.2 % (0.0-2.0); EOSINOPHILS % 0.2 % (0.0-7.0); HEMATOCRIT 40.5 % (42.0-52.0); HEMOGLOBIN 13.1 g/dl (14.0-18.0); LYMPHOCYTES # 1.1 10^3/ul (0.8-2.9); LYMPHOCYTES % 6.5 % (15.0-51.0); MEAN CORPUSCULAR HGB CONC 32.3 g/dl (32.0-37.0); MEAN CORPUSCULAR VOLUME 89.8 fl (82.0-101.0); MEAN PLATELET VOLUME 12.2 fl (7.4-10.4); MONOCYTE # 0.5 10^3/ul (0.3-0.9); MONOCYTES % 2.7 % (0.0-11.0); NEUTROPHIL # 14.6 10^3/ul (1.6-7.5); NEUTROPHILS % 87.2 % (39.0-77.0); NUCLEATED RED BLOOD CELLS # 0.1 10^3/ul (0.0-0.0); NUCLEATED RED BLOOD CELLS% 0.6 /100WBC (0.0-0.0); PLATELET COUNT 225 10^3/UL (140-415); RED BLOOD COUNT 4.51 10^6/ul (4.70-6.10); RED CELL DISTRIBUTION WIDTH 16.8 % (11.5-14.5)
[2017-09-02 05:58] LABS: WHITE BLOOD COUNT 16.8 10^3/ul (4.8-10.8)
[2017-09-02 06:08] LABS: AADO2 Arterial 559.2 mmHg (7.0-24.0); Allen Test ACCEPTAB; Arterial Base Excess -2.3 mmol/L (-3.0-3); Arterial COHb 0.3 % (0.0-3.0); Arterial Fraction of Oxyhgb 88.6 % (93.0-99.0); Arterial HCO3 25.2 mmol/L (22.0-26.0); Arterial MetHb 0.2 % (0.0-1.5); Arterial Total Hemglobin 13.5 g/dl (12.0-18.0); Arterial pCO2 54.4 mmhg (35-45); MODE VENT - AC; Site Right Radial
[2017-09-02 06:26] LABS: ANION GAP 17 (8-16); BLOOD UREA NITROGEN 79 mg/dl (7-20); CALCIUM 8.4 mg/dl (8.4-10.2); CARBON DIOXIDE 27 mmol/L (21-31); CHLORIDE 114 mmol/L (97-110); GLUCOSE 337 mg/dl (70-220); POTASSIUM 4.6 mmol/L (3.5-5.1); SODIUM 153 mmol/L (135-144)
[2017-09-02 07:52] LABS: AADO2 Arterial 609.5 mmHg (7.0-24.0); Allen Test ACCEPTAB; Arterial Base Excess -1.4 mmol/L (-3.0-3); Arterial Blood Gas Oxygen Sat 89.6 mmHG (95.0-98.0); Arterial COHb 0.3 % (0.0-3.0); Arterial Fraction of Oxyhgb 89.1 % (93.0-99.0); Arterial HCO3 24.1 mmol/L (22.0-26.0); Arterial MetHb 0.3 % (0.0-1.5); Arterial Total Hemglobin 12.6 g/dl (12.0-18.0); Arterial pCO2 43.6 mmhg (35-45); MODE VENT - PC; Site Right Radial
[2017-09-02] MEDS: FENTAnyl (DRIP) 1000 mcg/100mL 100 ML IV ×2 (08:33→17:31)
[2017-09-02] MEDS: PROPOFOL 100 ML IV ×5 (09:13→21:35)
[2017-09-02] MEDS: OSELTAMIVIR 30 MG CAP PO ×2 (09:13→21:13)
[2017-09-02] MEDS: CEFEPIME 1GM/50 ML (PMX) 50 ML IVPB ×2 (09:13→21:13)
[2017-09-02] MEDS: FAMOTIDINE 20 MG TAB NGT (09:13)
[2017-09-02] MEDS: HEPARIN 5,000 UNIT/0.5 ML VIAL SC ×2 (09:15→21:26)
[2017-09-02] MEDS ORDERED: VANCOMYCIN IV PER PHARMACY XX (10:30)
[2017-09-02 11:16] LABS: INFLUENZA VIRUS A/B SOURCE SWAB
[2017-09-02] MEDS: ACCU-CHEK XX ×12 (11:30→22:54)
[2017-09-02] MEDS: Discontinue all previous diabetes medication and insulin orders. XX (13:04)
[2017-09-02] MEDS: VANCOMYCIN 2 GM in SOD CHLORIDE 0.9% 500 ML IVPB (13:05)
[2017-09-02] MEDS: INSULIN HUMAN REGULAR 100 UNIT in SOD CHLORIDE 0.9% 99 ML IV ×2 (13:07→22:15)
[2017-09-02] MEDS: PHENYLephrine 20MG IN 250 ML 250 ML IV (13:42)
[2017-09-02] MEDS ORDERED: VECURONIUM 100 MG in DEXTROSE 5% 100 ML IV (17:30)
[2017-09-02] MEDS: VECURONIUM 100 MG in DEXTROSE 5% 100 ML IV (18:52)
[2017-09-02] MEDS: PHENYLephrine 40 MG in DEXTROSE 5% 496 ML IV (19:07)
[2017-09-02] MEDS ORDERED: INSULIN GLARGINE [LANtus] 3 ML PEN SC (20:00)
[2017-09-02] MEDS: VANCOMYCIN 1 GM 250 ML IVPB (20:31)
[2017-09-02] MEDS: ATORVASTATIN 40 MG TAB PO (21:13)
[2017-09-03] MEDS: ACCU-CHEK XX ×25 (00:11→23:52)
[2017-09-03] MEDS: PROPOFOL 100 ML IV ×3 (00:14→22:09)
[2017-09-03] MEDS: MIDAZOLAM (DRIP) 50 mg/50 mL 50 ML IV ×5 (04:09→22:40)
[2017-09-03] MEDS: VECURONIUM 100 MG in DEXTROSE 5% 100 ML IV ×2 (05:35→17:25)
[2017-09-03 05:42] LABS: ADD MAN DIFF? NO
[2017-09-03 05:46] LABS: WHITE BLOOD COUNT 26.2 10^3/ul (4.8-10.8)
[2017-09-03 05:46] LABS: ABNORMAL IP MESSAGE 1; BASOPHILS % 0.2 % (0.0-2.0); EOSINOPHILS # 0.3 10^3/ul (0.0-0.5); EOSINOPHILS % 1.1 % (0.0-7.0); HEMATOCRIT 36.8 % (42.0-52.0); HEMOGLOBIN 11.6 g/dl (14.0-18.0); LYMPHOCYTES # 1.2 10^3/ul (0.8-2.9); LYMPHOCYTES % 4.7 % (15.0-51.0); MEAN CORPUSCULAR HEMOGLOBIN 29.7 pg (29.0-33.0); MEAN CORPUSCULAR HGB CONC 31.5 g/dl (32.0-37.0); MEAN CORPUSCULAR VOLUME 94.4 fl (82.0-101.0); MEAN PLATELET VOLUME 12.2 fl (7.4-10.4); MONOCYTE # 0.5 10^3/ul (0.3-0.9); MONOCYTES % 1.9 % (0.0-11.0); NEUTROPHIL # 23.5 10^3/ul (1.6-7.5); NEUTROPHILS % 89.6 % (39.0-77.0); NUCLEATED RED BLOOD CELLS # 0.1 10^3/ul (0.0-0.0); NUCLEATED RED BLOOD CELLS% 0.2 /100WBC (0.0-0.0); PLATELET COUNT 223 10^3/UL (140-415); POSITIVE DIFF @See below; RED CELL DISTRIBUTION WIDTH 17.2 % (11.5-14.5)
[2017-09-03 06:27] LABS: ANION GAP 15 (8-16); BLOOD UREA NITROGEN 65 mg/dl (7-20); CALCIUM 7.7 mg/dl (8.4-10.2); CARBON DIOXIDE 24 mmol/L (21-31); CHLORIDE 113 mmol/L (97-110); CREATININE 2.12 mg/dl (0.61-1.24); GLUCOSE 322 mg/dl (70-220); MAGNESIUM 2.4 mg/dl (1.7-2.5); PHOSPHORUS 5.2 mg/dl (2.5-4.9); POTASSIUM 4.6 mmol/L (3.5-5.1); SODIUM 147 mmol/L (135-144)
[2017-09-03 08:20] LABS: AADO2 Arterial 579.8 mmHg (7.0-24.0); Allen Test ACCEPTAB; Arterial Base Excess -2.8 mmol/L (-3.0-3); Arterial HCO3 27.3 mmol/L (22.0-26.0); MODE VENT - PC; Site Right Radial
[2017-09-03] MEDS: FAMOTIDINE 20 MG TAB NGT (08:32)
[2017-09-03] MEDS: CEFEPIME 1GM/50 ML (PMX) 50 ML IVPB ×2 (08:32→21:09)
[2017-09-03] MEDS: OSELTAMIVIR 30 MG CAP PO ×2 (08:32→21:09)
[2017-09-03] MEDS: HEPARIN 5,000 UNIT/0.5 ML VIAL SC ×2 (08:38→21:24)
[2017-09-03] MEDS: PHENYLephrine 40 MG in DEXTROSE 5% 496 ML IV ×3 (08:57→16:01)
[2017-09-03] MEDS: VANCOMYCIN 1 GM 250 ML IVPB ×2 (09:11→20:05)
[2017-09-03] MEDS: INSULIN HUMAN REGULAR 100 UNIT in SOD CHLORIDE 0.9% 99 ML IV ×2 (09:28→18:41)
[2017-09-03] MEDS: FENTAnyl (DRIP) 1000 mcg/100mL 100 ML IV ×2 (09:45→18:42)
[2017-09-03] MEDS ORDERED: FUROSEMIDE 40 MG INJ (09:47)
[2017-09-03] MEDS: FUROSEMIDE 40 MG INJ IV (09:49)
[2017-09-03] MEDS ORDERED: ALBUTEROL HFA 8 GM INHALER (10:08)
[2017-09-03] MEDS ORDERED: IPRATROPIUM (HFA) 12.9 GM INHALER INH (10:08)
[2017-09-03 12:21] LABS: AADO2 Arterial 603.8 mmHg (7.0-24.0); Allen Test ACCEPTAB; Arterial Base Excess -2.1 mmol/L (-3.0-3); Arterial Blood Gas Oxygen Sat 85.7 mmHG (95.0-98.0); Arterial COHb 0.2 % (0.0-3.0); Arterial Fraction of Oxyhgb 85.4 % (93.0-99.0); Arterial HCO3 25.7 mmol/L (22.0-26.0); Arterial MetHb 0.2 % (0.0-1.5); Arterial Total Hemglobin 14.1 g/dl (12.0-18.0); Arterial pCO2 56.8 mmhg (35-45); MODE VENT - PC; Site Right Radial
[2017-09-03] MEDS: INSULIN GLARGINE [LANtus] 3 ML PEN SC (14:11)
[2017-09-03] MEDS: NORepinephrine 8MG/250 ML (PMX 250 ML IV (16:06)
[2017-09-03] MEDS: PHENYLephrine 80 MG in DEXTROSE 5% 242 ML IV ×2 (17:31→22:39)
[2017-09-03 20:09] LABS: VANCOMYCIN,TROUGH 22.2 ug/ml (10.0-20.0)
[2017-09-03] MEDS: VASOPRESSIN 60 UNIT in DEXTROSE 5% 57 ML IV (20:57)
[2017-09-03] MEDS: ATORVASTATIN 40 MG TAB PO (21:09)
[2017-09-03] MEDS: ACETAMINOPHEN 1000MG/100ML IV 100 ML IVPB (23:47)
[2017-09-04] MEDS: ACCU-CHEK XX ×24 (00:30→23:56)
[2017-09-04] MEDS: PROPOFOL 100 ML IV ×7 (03:10→22:39)
[2017-09-04] MEDS: FENTAnyl (DRIP) 1000 mcg/100mL 100 ML IV ×3 (03:14→19:42)
[2017-09-04] MEDS: PHENYLephrine 80 MG in DEXTROSE 5% 242 ML IV ×3 (04:16→20:47)
[2017-09-04] MEDS: INSULIN HUMAN REGULAR 100 UNIT in SOD CHLORIDE 0.9% 99 ML IV ×3 (04:18→21:03)
[2017-09-04] MEDS: MIDAZOLAM (DRIP) 50 mg/50 mL 50 ML IV ×4 (05:34→22:26)
[2017-09-04 05:38] LABS: ADD MAN DIFF? NO
[2017-09-04 05:43] LABS: BASOPHIL # 0.1 10^3/ul (0.0-0.1); BASOPHILS % 0.3 % (0.0-2.0); EOSINOPHILS # 0.2 10^3/ul (0.0-0.5); EOSINOPHILS % 0.9 % (0.0-7.0); HEMATOCRIT 42.4 % (42.0-52.0); HEMOGLOBIN 12.9 g/dl (14.0-18.0); LYMPHOCYTES % 9.4 % (15.0-51.0); MEAN CORPUSCULAR HEMOGLOBIN 28.4 pg (29.0-33.0); MEAN CORPUSCULAR HGB CONC 30.4 g/dl (32.0-37.0); MEAN CORPUSCULAR VOLUME 93.2 fl (82.0-101.0); MONOCYTE # 0.8 10^3/ul (0.3-0.9); MONOCYTES % 3.9 % (0.0-11.0); NEUTROPHIL # 17.5 10^3/ul (1.6-7.5); NEUTROPHILS % 81.1 % (39.0-77.0); NUCLEATED RED BLOOD CELLS% 0.1 /100WBC (0.0-0.0); PLATELET COUNT 251 10^3/UL (140-415); RED BLOOD COUNT 4.55 10^6/ul (4.70-6.10); RED CELL DISTRIBUTION WIDTH 16.7 % (11.5-14.5)
[2017-09-04 05:43] LABS: WHITE BLOOD COUNT 21.6 10^3/ul (4.8-10.8)
[2017-09-04] MEDS: VASOPRESSIN 60 UNIT in DEXTROSE 5% 57 ML IV ×2 (06:26→14:41)
[2017-09-04] MEDS: VECURONIUM 100 MG in DEXTROSE 5% 100 ML IV ×2 (06:27→16:56)
[2017-09-04 06:28] LABS: ALANINE AMINOTRANSFERASE 79 IU/L (13-69); ALBUMIN 2.8 g/dl (3.3-4.9); ALBUMIN/GLOBULIN RATIO 0.84; ALKALINE PHOSPHATASE 110 IU/L (42-121); ANION GAP 16 (8-16); ASPARTATE AMINO TRANSFERASE 79 IU/L (15-46); BILIRUBIN,INDIRECT 0.2 mg/dl (0-1.1); BILIRUBIN,TOTAL 0.2 mg/dl (0.2-1.3); BLOOD UREA NITROGEN 75 mg/dl (7-20); CALCIUM 8.4 mg/dl (8.4-10.2); CARBON DIOXIDE 25 mmol/L (21-31); CHLORIDE 117 mmol/L (97-110); CREATININE 2.89 mg/dl (0.61-1.24); GLUCOSE 201 mg/dl (70-220); MAGNESIUM 2.5 mg/dl (1.7-2.5); POTASSIUM 5.1 mmol/L (3.5-5.1); SODIUM 153 mmol/L (135-144); TOTAL PROTEIN 6.1 g/dl (6.1-8.1)
[2017-09-04] MEDS ORDERED: LIDOCAINE 1% (MDV) 20 ML INJ (08:49)
[2017-09-04 09:03] LABS: AADO2 Arterial 612.7 mmHg (7.0-24.0); Allen Test ACCEPTAB; Arterial Base Excess -2.7 mmol/L (-3.0-3); Arterial HCO3 23.7 mmol/L (22.0-26.0); Arterial pCO2 47.1 mmhg (35-45); MODE VENT - PC; Site Right Radial
[2017-09-04] MEDS: INSULIN GLARGINE [LANtus] 3 ML PEN SC (10:08)
[2017-09-04] MEDS: OSELTAMIVIR 30 MG CAP PO ×2 (10:09→20:32)
[2017-09-04] MEDS: CEFEPIME 1GM/50 ML (PMX) 50 ML IVPB ×2 (10:09→20:42)
[2017-09-04] MEDS: FAMOTIDINE 20 MG TAB NGT (10:09)
[2017-09-04] MEDS: VANCOMYCIN 1 GM 250 ML IVPB (10:09)
[2017-09-04] MEDS: HEPARIN 5,000 UNIT/0.5 ML VIAL SC ×2 (10:10→20:33)
[2017-09-04] MEDS: ACETAMINOPHEN 650MG/20.3ML CUP GTB (10:50)
[2017-09-04 10:56] LABS: Arterial Base Excess -4.1 mmol/L (-3.0-3); Arterial Blood Gas Oxygen Sat 91.7 mmHG (95.0-98.0); Arterial COHb 0.3 % (0.0-3.0); Arterial Fraction of Oxyhgb 91.2 % (93.0-99.0); Arterial HCO3 21.4 mmol/L (22.0-26.0); Arterial MetHb 0.2 % (0.0-1.5); Arterial Total Hemglobin 12.4 g/dl (12.0-18.0); Arterial pCO2 40.4 mmhg (35-45); MODE VENT - PC; Site A-Line
[2017-09-04 11:18] LABS: ADD UMIC YES; UR AMORPHOUS CRYSTAL FEW /HPF (NONE SEEN); UR ASCORBIC ACID NEGATIVE (NEGATIVE); UR BACTERIA FEW /HPF (NONE SEEN); UR BILIRUBIN (Dip) NEGATIVE (NEGATIVE); UR BLOOD (Dip) 3+ mg/dL (NEGATIVE); UR CLARITY TURBID (CLEAR); UR COLOR YELLOW (YELLOW); UR GLUCOSE (Dip) NEGATIVE (NEGATIVE); UR KETONES (Dip) NEGATIVE (NEGATIVE); UR LEUKOCYTE ESTERASE (Dip) NEGATIVE Leu/ul (NEGATIVE); UR NITRITE (Dip) NEGATIVE (NEGATIVE); UR RBC 6 /HPF (0-5); UR SPECIFIC GRAVITY (Dip) 1.019 (1.003-1.030); UR TOTAL PROTEIN (Dip) 2+ mg/dl (NEGATIVE); UR UROBILINOGEN (Dip) NEGATIVE (NEGATIVE); UR WBC 9 /HPF (0-5)
[2017-09-04] MEDS: METHYLPREDNISOLONE 125 MG INJ IV ×2 (14:41→17:28)
[2017-09-04] MEDS: ACETAMINOPHEN 1000MG/100ML IV 100 ML IVPB (20:22)
[2017-09-04] MEDS: ATORVASTATIN 40 MG TAB PO (20:25)
[2017-09-05] MEDS: METHYLPREDNISOLONE 125 MG INJ IV ×4 (00:17→18:18)
[2017-09-05] MEDS: ACCU-CHEK XX ×24 (01:05→23:01)
[2017-09-05] MEDS: PROPOFOL 100 ML IV ×7 (02:05→21:36)
[2017-09-05] MEDS: ACETAMINOPHEN 1000MG/100ML IV 100 ML IVPB ×2 (02:52→08:44)
[2017-09-05] MEDS: MIDAZOLAM (DRIP) 50 mg/50 mL 50 ML IV ×5 (04:09→23:07)
[2017-09-05] MEDS: VASOPRESSIN 60 UNIT in DEXTROSE 5% 57 ML IV ×2 (04:09→16:30)
[2017-09-05] MEDS: VECURONIUM 100 MG in DEXTROSE 5% 100 ML IV ×2 (04:28→22:17)
[2017-09-05 05:08] LABS: ADD MAN DIFF? NO
[2017-09-05 05:21] LABS: BASOPHILS % 0.3 % (0.0-2.0); EOSINOPHILS % 0.1 % (0.0-7.0); HEMATOCRIT 33.8 % (42.0-52.0); HEMOGLOBIN 10.4 g/dl (14.0-18.0); LYMPHOCYTES # 0.7 10^3/ul (0.8-2.9); LYMPHOCYTES % 4.2 % (15.0-51.0); MEAN CORPUSCULAR HEMOGLOBIN 28.7 pg (29.0-33.0); MEAN CORPUSCULAR HGB CONC 30.8 g/dl (32.0-37.0); MEAN CORPUSCULAR VOLUME 93.1 fl (82.0-101.0); MEAN PLATELET VOLUME 12.2 fl (7.4-10.4); MONOCYTE # 0.2 10^3/ul (0.3-0.9); MONOCYTES % 1.5 % (0.0-11.0); NEUTROPHIL # 14.6 10^3/ul (1.6-7.5); PLATELET COUNT 208 10^3/UL (140-415); RED BLOOD COUNT 3.63 10^6/ul (4.70-6.10); RED CELL DISTRIBUTION WIDTH 16.4 % (11.5-14.5)
[2017-09-05] MEDS: FENTAnyl (DRIP) 1000 mcg/100mL 100 ML IV ×3 (05:31→22:21)
[2017-09-05 06:07] LABS: ANION GAP 16 (8-16); BLOOD UREA NITROGEN 83 mg/dl (7-20); CALCIUM 7.9 mg/dl (8.4-10.2); CARBON DIOXIDE 23 mmol/L (21-31); CHLORIDE 116 mmol/L (97-110); CREATININE 3.68 mg/dl (0.61-1.24); GLUCOSE 288 mg/dl (70-220); POTASSIUM 4.6 mmol/L (3.5-5.1); SODIUM 150 mmol/L (135-144)
[2017-09-05 06:13] LABS: AADO2 Arterial 598.7 mmHg (7.0-24.0); Arterial Base Excess -5.7 mmol/L (-3.0-3); Arterial Blood Gas Oxygen Sat 90.3 mmHG (95.0-98.0); Arterial COHb 0.3 % (0.0-3.0); Arterial Fraction of Oxyhgb 89.8 % (93.0-99.0); Arterial HCO3 21.3 mmol/L (22.0-26.0); Arterial MetHb 0.3 % (0.0-1.5); Arterial Total Hemglobin 14.4 g/dl (12.0-18.0); Arterial pCO2 47.4 mmhg (35-45); MODE VENT - PC; Site A-Line
[2017-09-05] MEDS: INSULIN HUMAN REGULAR 100 UNIT in SOD CHLORIDE 0.9% 99 ML IV ×3 (06:33→23:04)
[2017-09-05] MEDS: CEFEPIME 1GM/50 ML (PMX) 50 ML IVPB (07:45)
[2017-09-05] MEDS: OSELTAMIVIR 30 MG CAP PO ×2 (08:05→21:08)
[2017-09-05] MEDS: FAMOTIDINE 20 MG TAB NGT (08:05)
[2017-09-05] MEDS ORDERED: NA BICARBONATE 8.4% 50 ML SYG (08:06)
[2017-09-05] MEDS: INSULIN GLARGINE [LANtus] 3 ML PEN SC (08:07)
[2017-09-05] MEDS: HEPARIN 5,000 UNIT/0.5 ML VIAL SC ×2 (08:07→21:07)
[2017-09-05] MEDS: NA BICARBONATE 8.4% 50 ML SYG IV (08:18)
[2017-09-05] MEDS: SODIUM BICARBONATE (IV ADD) 100 MEQ in DEXTROSE 5% 900 ML IV ×2 (09:49→23:18)
[2017-09-05] MEDS: ACETAMINOPHEN 650 MG SUPP PR (12:06)
[2017-09-05] MEDS: ATORVASTATIN 40 MG TAB PO (21:08)
[2017-09-06] MEDS: METHYLPREDNISOLONE 125 MG INJ IV ×4 (00:12→17:28)
[2017-09-06] MEDS: ACCU-CHEK XX ×24 (00:18→22:05)
[2017-09-06] MEDS: PROPOFOL 100 ML IV ×8 (01:12→22:26)
[2017-09-06] MEDS: SODIUM BICARBONATE (IV ADD) 100 MEQ in DEXTROSE 5% 900 ML IV (02:07)
[2017-09-06] MEDS: VASOPRESSIN 60 UNIT in DEXTROSE 5% 57 ML IV ×2 (04:30→16:19)
[2017-09-06] MEDS: MIDAZOLAM (DRIP) 50 mg/50 mL 50 ML IV ×4 (04:56→20:55)
[2017-09-06] MEDS: INSULIN HUMAN REGULAR 100 UNIT in SOD CHLORIDE 0.9% 99 ML IV ×3 (06:20→23:01)
[2017-09-06 07:03] LABS: ADD MAN DIFF? NO
[2017-09-06 07:05] LABS: WHITE BLOOD COUNT 10.9 10^3/ul (4.8-10.8)
[2017-09-06 07:05] LABS: BASOPHILS % 0.2 % (0.0-2.0); LYMPHOCYTES # 0.6 10^3/ul (0.8-2.9); LYMPHOCYTES % 5.8 % (15.0-51.0); MEAN CORPUSCULAR HEMOGLOBIN 29.1 pg (29.0-33.0); MEAN CORPUSCULAR HGB CONC 31.3 g/dl (32.0-37.0); MONOCYTE # 0.4 10^3/ul (0.3-0.9); MONOCYTES % 3.4 % (0.0-11.0); NEUTROPHIL # 9.7 10^3/ul (1.6-7.5); NEUTROPHILS % 89.1 % (39.0-77.0); PLATELET COUNT 219 10^3/UL (140-415); RED BLOOD COUNT 3.44 10^6/ul (4.70-6.10); RED CELL DISTRIBUTION WIDTH 16.4 % (11.5-14.5)
[2017-09-06 07:22] LABS: ANION GAP 15 (8-16); BLOOD UREA NITROGEN 85 mg/dl (7-20); CALCIUM 7.7 mg/dl (8.4-10.2); CARBON DIOXIDE 25 mmol/L (21-31); CHLORIDE 116 mmol/L (97-110); CREATININE 3.29 mg/dl (0.61-1.24); GLUCOSE 236 mg/dl (70-220); MAGNESIUM 2.4 mg/dl (1.7-2.5); SODIUM 152 mmol/L (135-144)
[2017-09-06] MEDS: OSELTAMIVIR 30 MG CAP PO ×2 (08:18→21:16)
[2017-09-06] MEDS: CEFEPIME 1GM/50 ML (PMX) 50 ML IVPB (08:18)
[2017-09-06] MEDS: FAMOTIDINE 20 MG TAB NGT (08:19)
[2017-09-06] MEDS: INSULIN GLARGINE [LANtus] 3 ML PEN SC ×2 (08:20→09:34)
[2017-09-06] MEDS: HEPARIN 5,000 UNIT/0.5 ML VIAL SC ×2 (08:20→21:16)
[2017-09-06] MEDS: FENTAnyl (DRIP) 1000 mcg/100mL 100 ML IV ×2 (08:21→17:36)
[2017-09-06 08:46] LABS: AADO2 Arterial 599.9 mmHg (7.0-24.0); Allen Test ACCEPTAB; Arterial Base Excess -0.6 mmol/L (-3.0-3); Arterial HCO3 25.4 mmol/L (22.0-26.0); Arterial pCO2 46.9 mmhg (35-45); MODE VENT - PC; Site A-Line
[2017-09-06] MEDS: VECURONIUM 100 MG in DEXTROSE 5% 100 ML IV ×2 (09:19→21:41)
[2017-09-06] MEDS: VANCOMYCIN 1 GM 250 ML IVPB (09:28)
[2017-09-06] MEDS: DEXTROSE 5% 1,000 ML IV (11:54)
[2017-09-06] MEDS: ATORVASTATIN 40 MG TAB PO (21:16)
[2017-09-06] MEDS: IPRATROPIUM (HFA) 12.9 GM INHALER INH (21:42)
[2017-09-06] MEDS: ALBUTEROL HFA 8 GM INHALER INH (21:42)
[2017-09-07] MEDS: ACCU-CHEK XX ×24 (00:05→22:59)
[2017-09-07] MEDS: METHYLPREDNISOLONE 125 MG INJ IV ×4 (00:08→17:12)
[2017-09-07] MEDS: IPRATROPIUM (HFA) 12.9 GM INHALER INH ×3 (01:31→23:57)
[2017-09-07] MEDS: ALBUTEROL HFA 8 GM INHALER INH ×3 (01:31→23:57)
[2017-09-07] MEDS: PROPOFOL 100 ML IV ×8 (01:49→22:44)
[2017-09-07] MEDS: DEXTROSE 5% 1,000 ML IV ×2 (01:53→17:09)
[2017-09-07] MEDS: MIDAZOLAM (DRIP) 50 mg/50 mL 50 ML IV ×4 (01:56→18:23)
[2017-09-07] MEDS: FENTAnyl (DRIP) 1000 mcg/100mL 100 ML IV ×3 (04:03→23:08)
[2017-09-07] MEDS: VASOPRESSIN 60 UNIT in DEXTROSE 5% 57 ML IV ×2 (04:04→15:58)
[2017-09-07 04:51] LABS: ADD MAN DIFF? NO
[2017-09-07 04:52] LABS: ABNORMAL IP MESSAGE 1; BASOPHILS % 0.1 % (0.0-2.0); HEMOGLOBIN 10.2 g/dl (14.0-18.0); LYMPHOCYTES # 0.5 10^3/ul (0.8-2.9); LYMPHOCYTES % 5.5 % (15.0-51.0); MEAN CORPUSCULAR HGB CONC 31.9 g/dl (32.0-37.0); MEAN CORPUSCULAR VOLUME 90.9 fl (82.0-101.0); MEAN PLATELET VOLUME 12.9 fl (7.4-10.4); MONOCYTE # 0.4 10^3/ul (0.3-0.9); MONOCYTES % 4.2 % (0.0-11.0); NEUTROPHIL # 8.5 10^3/ul (1.6-7.5); NEUTROPHILS % 88.6 % (39.0-77.0); NUCLEATED RED BLOOD CELLS% 0.2 /100WBC (0.0-0.0); PLATELET COUNT 245 10^3/UL (140-415); POSITIVE DIFF @See below; RED BLOOD COUNT 3.52 10^6/ul (4.70-6.10); RED CELL DISTRIBUTION WIDTH 16.1 % (11.5-14.5)
[2017-09-07 04:52] LABS: WHITE BLOOD COUNT 9.5 10^3/ul (4.8-10.8)
[2017-09-07 05:19] LABS: ANION GAP 14 (8-16); BLOOD UREA NITROGEN 78 mg/dl (7-20); CALCIUM 7.5 mg/dl (8.4-10.2); CARBON DIOXIDE 26 mmol/L (21-31); CHLORIDE 113 mmol/L (97-110); CREATININE 2.87 mg/dl (0.61-1.24); GLUCOSE 246 mg/dl (70-220); MAGNESIUM 2.2 mg/dl (1.7-2.5); PHOSPHORUS 5.1 mg/dl (2.5-4.9); POTASSIUM 4.3 mmol/L (3.5-5.1); SODIUM 149 mmol/L (135-144)
[2017-09-07] MEDS: INSULIN HUMAN REGULAR 100 UNIT in SOD CHLORIDE 0.9% 99 ML IV ×2 (06:58→14:19)
[2017-09-07] MEDS: VECURONIUM 100 MG in DEXTROSE 5% 100 ML IV ×2 (07:27→19:23)
[2017-09-07] MEDS: CEFEPIME 1GM/50 ML (PMX) 50 ML IVPB (08:07)
[2017-09-07] MEDS: OSELTAMIVIR 30 MG CAP PO (08:07)
[2017-09-07] MEDS: FAMOTIDINE 20 MG TAB NGT (08:07)
[2017-09-07] MEDS: INSULIN GLARGINE [LANtus] 3 ML PEN SC ×2 (08:09→10:19)
[2017-09-07] MEDS: HEPARIN 5,000 UNIT/0.5 ML VIAL SC (08:09)
[2017-09-07 09:21] LABS: AADO2 Arterial 531.3 mmHg (7.0-24.0); Allen Test ACCEPTAB; Arterial Base Excess 0.2 mmol/L (-3.0-3); Arterial COHb 0.3 % (0.0-3.0); Arterial Fraction of Oxyhgb 90.5 % (93.0-99.0); Arterial HCO3 25.8 mmol/L (22.0-26.0); Arterial MetHb 0.2 % (0.0-1.5); Arterial pCO2 45.6 mmhg (35-45); MODE VENT - AC; Site Right Radial
[2017-09-07] MEDS: ATORVASTATIN 40 MG TAB PO (20:39)
[2017-09-07] MEDS: ENOXAPARIN 100 MG/ML SYG SC (20:41)
[2017-09-07] MEDS: ACETAMINOPHEN 650MG/20.3ML CUP GTB (20:50)
[2017-09-08] MEDS: ACCU-CHEK XX ×24 (00:04→23:00)
[2017-09-08] MEDS: METHYLPREDNISOLONE 125 MG INJ IV ×5 (00:23→23:55)
[2017-09-08] MEDS: ACETAMINOPHEN 650MG/20.3ML CUP GTB ×2 (00:23→11:36)
[2017-09-08] MEDS: INSULIN HUMAN REGULAR 100 UNIT in SOD CHLORIDE 0.9% 99 ML IV ×3 (01:10→22:34)
[2017-09-08] MEDS: MIDAZOLAM (DRIP) 50 mg/50 mL 50 ML IV ×5 (01:11→21:59)
[2017-09-08] MEDS: PROPOFOL 100 ML IV ×5 (02:04→17:34)
[2017-09-08] MEDS: VASOPRESSIN 60 UNIT in DEXTROSE 5% 57 ML IV ×2 (04:14→16:19)
[2017-09-08] MEDS: ALBUTEROL HFA 8 GM INHALER INH (04:40)
[2017-09-08] MEDS: IPRATROPIUM (HFA) 12.9 GM INHALER INH (04:40)
[2017-09-08] MEDS: DEXTROSE 5% 1,000 ML IV ×2 (07:25→23:26)
[2017-09-08] MEDS: VECURONIUM 100 MG in DEXTROSE 5% 100 ML IV (07:50)
[2017-09-08 07:56] LABS: AADO2 Arterial 563.2 mmHg (7.0-24.0); Arterial Base Excess -2.3 mmol/L (-3.0-3); Arterial COHb 0.3 % (0.0-3.0); Arterial Fraction of Oxyhgb 91.4 % (93.0-99.0); Arterial HCO3 23.4 mmol/L (22.0-26.0); Arterial MetHb 0.4 % (0.0-1.5); MODE VENT - PC; Site A-Line
[2017-09-08] MEDS: FENTAnyl (DRIP) 1000 mcg/100mL 100 ML IV ×2 (08:05→17:18)
[2017-09-08] MEDS: FAMOTIDINE 20 MG TAB NGT (08:53)
[2017-09-08] MEDS: CEFEPIME 1GM/50 ML (PMX) 50 ML IVPB (08:54)
[2017-09-08] MEDS: INSULIN GLARGINE [LANtus] 3 ML PEN SC (08:56)
[2017-09-08] MEDS: ENOXAPARIN 100 MG/ML SYG SC ×2 (09:09→20:47)
[2017-09-08] MEDS: VANCOMYCIN 1 GM 250 ML IVPB (09:14)
[2017-09-08 09:30] LABS: ADD MAN DIFF? NO
[2017-09-08 09:36] LABS: ABNORMAL IP MESSAGE 1; BASOPHILS % 0.1 % (0.0-2.0); HEMATOCRIT 31.3 % (42.0-52.0); HEMOGLOBIN 10.1 g/dl (14.0-18.0); LYMPHOCYTES # 0.5 10^3/ul (0.8-2.9); LYMPHOCYTES % 5.7 % (15.0-51.0); MEAN CORPUSCULAR HGB CONC 32.3 g/dl (32.0-37.0); MEAN CORPUSCULAR VOLUME 89.9 fl (82.0-101.0); MEAN PLATELET VOLUME 12.8 fl (7.4-10.4); MONOCYTE # 0.4 10^3/ul (0.3-0.9); MONOCYTES % 4.4 % (0.0-11.0); NEUTROPHIL # 8.3 10^3/ul (1.6-7.5); NEUTROPHILS % 88.1 % (39.0-77.0); PLATELET COUNT 234 10^3/UL (140-415); POSITIVE DIFF @See below; RED BLOOD COUNT 3.48 10^6/ul (4.70-6.10); RED CELL DISTRIBUTION WIDTH 15.6 % (11.5-14.5)
[2017-09-08 09:36] LABS: WHITE BLOOD COUNT 9.5 10^3/ul (4.8-10.8)
[2017-09-08 09:56] LABS: ANION GAP 14 (8-16); BLOOD UREA NITROGEN 74 mg/dl (7-20); CALCIUM 7.5 mg/dl (8.4-10.2); CARBON DIOXIDE 25 mmol/L (21-31); CHLORIDE 111 mmol/L (97-110); GLUCOSE 212 mg/dl (70-220); POTASSIUM 4.4 mmol/L (3.5-5.1); SODIUM 146 mmol/L (135-144)
[2017-09-08] MEDS: ATORVASTATIN 40 MG TAB PO (20:48)
[2017-09-09] MEDS: ACCU-CHEK XX ×21 (00:52→19:37)
[2017-09-09] MEDS: FENTAnyl (DRIP) 1000 mcg/100mL 100 ML IV ×2 (02:48→12:57)
[2017-09-09] MEDS: PROPOFOL 100 ML IV ×6 (02:58→23:32)
[2017-09-09] MEDS: METHYLPREDNISOLONE 125 MG INJ IV ×4 (05:33→23:32)
[2017-09-09 05:49] LABS: ADD MAN DIFF? NO
[2017-09-09 06:00] LABS: BASOPHILS % 0.2 % (0.0-2.0); EOSINOPHILS % 0.1 % (0.0-7.0); HEMATOCRIT 29.2 % (42.0-52.0); HEMOGLOBIN 9.5 g/dl (14.0-18.0); LYMPHOCYTES # 0.6 10^3/ul (0.8-2.9); LYMPHOCYTES % 5.5 % (15.0-51.0); MEAN CORPUSCULAR HEMOGLOBIN 29.2 pg (29.0-33.0); MEAN CORPUSCULAR HGB CONC 32.5 g/dl (32.0-37.0); MEAN CORPUSCULAR VOLUME 89.8 fl (82.0-101.0); MONOCYTE # 0.5 10^3/ul (0.3-0.9); MONOCYTES % 4.3 % (0.0-11.0); NEUTROPHIL # 9.9 10^3/ul (1.6-7.5); NEUTROPHILS % 88.2 % (39.0-77.0); PLATELET COUNT 199 10^3/UL (140-415); RED BLOOD COUNT 3.25 10^6/ul (4.70-6.10); RED CELL DISTRIBUTION WIDTH 15.2 % (11.5-14.5)
[2017-09-09 06:00] LABS: WHITE BLOOD COUNT 11.2 10^3/ul (4.8-10.8)
[2017-09-09 06:47] LABS: ANION GAP 13 (8-16); BLOOD UREA NITROGEN 68 mg/dl (7-20); CALCIUM 6.9 mg/dl (8.4-10.2); CARBON DIOXIDE 22 mmol/L (21-31); CHLORIDE 104 mmol/L (97-110); CREATININE 2.21 mg/dl (0.61-1.24); MAGNESIUM 2.1 mg/dl (1.7-2.5); PHOSPHORUS 4.8 mg/dl (2.5-4.9); SODIUM 135 mmol/L (135-144)
[2017-09-09 06:57] LABS: GLUCOSE 439 mg/dl (70-220)
[2017-09-09] MEDS: CEFEPIME 1GM/50 ML (PMX) 50 ML IVPB (08:08)
[2017-09-09] MEDS: FAMOTIDINE 20 MG TAB NGT (08:08)
[2017-09-09] MEDS: ENOXAPARIN 100 MG/ML SYG SC ×2 (08:13→20:15)
[2017-09-09 08:26] LABS: AADO2 Arterial 598.8 mmHg (7.0-24.0); Arterial Base Excess -2.8 mmol/L (-3.0-3); Arterial Blood Gas Oxygen Sat 93.5 mmHG (95.0-98.0); Arterial COHb 0.3 % (0.0-3.0); Arterial Fraction of Oxyhgb 93.1 % (93.0-99.0); Arterial HCO3 22.1 mmol/L (22.0-26.0); Arterial MetHb 0.1 % (0.0-1.5); Arterial Total Hemglobin 10.6 g/dl (12.0-18.0); MODE VENT - PC; Site A-Line
[2017-09-09] MEDS: MIDAZOLAM (DRIP) 50 mg/50 mL 50 ML IV ×3 (09:21→20:13)
[2017-09-09] MEDS: INSULIN GLARGINE [LANtus] 3 ML PEN SC (09:25)
[2017-09-09] MEDS: DEXTROSE 5% 1,000 ML IV (11:35)
[2017-09-09] MEDS: INSULIN HUMAN REGULAR 100 UNIT in SOD CHLORIDE 0.9% 99 ML IV (12:54)
[2017-09-09] MEDS: ATORVASTATIN 40 MG TAB PO (20:12)
[2017-09-09] MEDS: ACETAMINOPHEN 650MG/20.3ML CUP GTB (20:13)
[2017-09-10] MEDS: MIDAZOLAM (DRIP) 50 mg/50 mL 50 ML IV ×5 (01:07→23:14)
[2017-09-10] MEDS: INSULIN HUMAN REGULAR 100 UNIT in SOD CHLORIDE 0.9% 99 ML IV ×2 (02:16→12:20)
[2017-09-10] MEDS: PROPOFOL 100 ML IV ×9 (03:09→23:14)
[2017-09-10 05:42] LABS: ADD MAN DIFF? NO
[2017-09-10 05:50] LABS: WHITE BLOOD COUNT 16.3 10^3/ul (4.8-10.8)
[2017-09-10 05:50] LABS: BASOPHILS % 0.1 % (0.0-2.0); HEMATOCRIT 31.5 % (42.0-52.0); HEMOGLOBIN 10.1 g/dl (14.0-18.0); LYMPHOCYTES # 0.6 10^3/ul (0.8-2.9); LYMPHOCYTES % 3.7 % (15.0-51.0); MEAN CORPUSCULAR HEMOGLOBIN 29.2 pg (29.0-33.0); MEAN CORPUSCULAR HGB CONC 32.1 g/dl (32.0-37.0); MEAN PLATELET VOLUME 12.6 fl (7.4-10.4); MONOCYTE # 0.5 10^3/ul (0.3-0.9); MONOCYTES % 2.9 % (0.0-11.0); NEUTROPHILS % 91.8 % (39.0-77.0); PLATELET COUNT 221 10^3/UL (140-415); RED BLOOD COUNT 3.46 10^6/ul (4.70-6.10)
[2017-09-10 06:29] LABS: ANION GAP 14 (8-16); BLOOD UREA NITROGEN 79 mg/dl (7-20); CALCIUM 7.9 mg/dl (8.4-10.2); CARBON DIOXIDE 22 mmol/L (21-31); CHLORIDE 111 mmol/L (97-110); CREATININE 2.66 mg/dl (0.61-1.24); GLUCOSE 236 mg/dl (70-220); POTASSIUM 4.7 mmol/L (3.5-5.1); SODIUM 142 mmol/L (135-144)
[2017-09-10] MEDS: METHYLPREDNISOLONE 125 MG INJ IV ×2 (07:04→20:48)
[2017-09-10 08:21] LABS: AADO2 Arterial 507.7 mmHg (7.0-24.0); Arterial Base Excess -5.3 mmol/L (-3.0-3); Arterial Blood Gas Oxygen Sat 94.5 mmHG (95.0-98.0); Arterial COHb 0.3 % (0.0-3.0); Arterial Fraction of Oxyhgb 93.8 % (93.0-99.0); Arterial HCO3 21.6 mmol/L (22.0-26.0); Arterial MetHb 0.4 % (0.0-1.5); Arterial Total Hemglobin 10.2 g/dl (12.0-18.0); Arterial pCO2 48.5 mmhg (35-45); MODE VENT - PC; Site A-Line
[2017-09-10] MEDS: DEXTROSE 5% 1,000 ML IV (08:34)
[2017-09-10] MEDS: FENTAnyl (DRIP) 1000 mcg/100mL 100 ML IV ×2 (08:44→17:46)
[2017-09-10] MEDS: ACCU-CHEK XX ×27 (08:51→22:57)
[2017-09-10] MEDS: INSULIN GLARGINE [LANtus] 3 ML PEN SC (09:00)
[2017-09-10] MEDS: ENOXAPARIN 100 MG/ML SYG SC ×2 (09:08→20:57)
[2017-09-10] MEDS: CEFEPIME 1GM/50 ML (PMX) 50 ML IVPB (09:09)
[2017-09-10] MEDS: FAMOTIDINE 20 MG TAB NGT (09:09)
[2017-09-10 11:04] LABS: VANCOMYCIN,TROUGH 6.6 ug/ml (10.0-20.0)
[2017-09-10] MEDS: VANCOMYCIN 1 GM 250 ML IVPB (11:22)
[2017-09-10 11:24] LABS: HDL CHOLESTEROL 36 mg/dl (28-63); LDL CHOLESTEROL,CALCULATED 23 mg/dl; TRIGLYCERIDES 430 mg/dl (0-149)
[2017-09-10 11:24] LABS: CHOLESTEROL 145 mg/dl (100-200)
[2017-09-10] MEDS: BALSAM PERU/CASTOR OIL 60 GM TUBE TOP (14:25)
[2017-09-10 20:46] LABS: AADO2 Arterial 501.7 mmHg (7.0-24.0); Allen Test ACCEPTAB; Arterial Base Excess -5.2 mmol/L (-3.0-3); Arterial Blood Gas Oxygen Sat 93.9 mmHG (95.0-98.0); Arterial COHb 0.3 % (0.0-3.0); Arterial Fraction of Oxyhgb 93.3 % (93.0-99.0); Arterial HCO3 23.1 mmol/L (22.0-26.0); Arterial MetHb 0.3 % (0.0-1.5); Arterial Total Hemglobin 11.3 g/dl (12.0-18.0); Arterial pCO2 58.9 mmhg (35-45); MODE VENT - PC; Site Right Radial
[2017-09-10] MEDS: ATORVASTATIN 40 MG TAB PO (20:48)
[2017-09-11] MEDS: ACCU-CHEK XX ×24 (00:07→23:07)
[2017-09-11] MEDS: INSULIN HUMAN REGULAR 100 UNIT in SOD CHLORIDE 0.9% 99 ML IV ×2 (00:50→13:53)
[2017-09-11] MEDS: PROPOFOL 100 ML IV ×7 (02:24→23:24)
[2017-09-11] MEDS: FENTAnyl (DRIP) 1000 mcg/100mL 100 ML IV ×2 (03:55→13:52)
[2017-09-11 05:33] LABS: ADD MAN DIFF? NO
[2017-09-11 05:36] LABS: BASOPHILS % 0.1 % (0.0-2.0); EOSINOPHILS % 0.1 % (0.0-7.0); HEMATOCRIT 32.1 % (42.0-52.0); LYMPHOCYTES # 0.7 10^3/ul (0.8-2.9); LYMPHOCYTES % 4.3 % (15.0-51.0); MEAN CORPUSCULAR HEMOGLOBIN 29.2 pg (29.0-33.0); MEAN CORPUSCULAR HGB CONC 31.2 g/dl (32.0-37.0); MEAN CORPUSCULAR VOLUME 93.9 fl (82.0-101.0); MEAN PLATELET VOLUME 12.7 fl (7.4-10.4); MONOCYTE # 0.7 10^3/ul (0.3-0.9); MONOCYTES % 4.3 % (0.0-11.0); NEUTROPHIL # 14.7 10^3/ul (1.6-7.5); NEUTROPHILS % 88.6 % (39.0-77.0); PLATELET COUNT 195 10^3/UL (140-415); RED BLOOD COUNT 3.42 10^6/ul (4.70-6.10); RED CELL DISTRIBUTION WIDTH 15.3 % (11.5-14.5)
[2017-09-11 05:36] LABS: WHITE BLOOD COUNT 16.6 10^3/ul (4.8-10.8)
[2017-09-11 06:08] LABS: ANION GAP 17 (8-16); BLOOD UREA NITROGEN 92 mg/dl (7-20); CALCIUM 7.4 mg/dl (8.4-10.2); CARBON DIOXIDE 21 mmol/L (21-31); CHLORIDE 112 mmol/L (97-110); GLUCOSE 201 mg/dl (70-220); POTASSIUM 5.2 mmol/L (3.5-5.1); SODIUM 145 mmol/L (135-144)
[2017-09-11] MEDS: MIDAZOLAM (DRIP) 50 mg/50 mL 50 ML IV ×4 (06:15→22:16)
[2017-09-11 06:30] LABS: CREATININE 3.18 mg/dl (0.61-1.24)
[2017-09-11 07:51] LABS: ALANINE AMINOTRANSFERASE 80 IU/L (13-69); ALBUMIN 2.5 g/dl (3.3-4.9); ALKALINE PHOSPHATASE 72 IU/L (42-121); ASPARTATE AMINO TRANSFERASE 55 IU/L (15-46); TOTAL PROTEIN 5.5 g/dl (6.1-8.1)
[2017-09-11] MEDS: ALBUTEROL HFA 8 GM INHALER INH ×3 (08:03→21:13)
[2017-09-11] MEDS: IPRATROPIUM (HFA) 12.9 GM INHALER INH ×3 (08:03→21:13)
[2017-09-11 08:17] LABS: AADO2 Arterial 484.4 mmHg (7.0-24.0); Allen Test ACCEPTAB; Arterial Base Excess -8.6 mmol/L (-3.0-3); Arterial Blood Gas Oxygen Sat 94.6 mmHG (95.0-98.0); Arterial COHb 0.1 % (0.0-3.0); Arterial Fraction of Oxyhgb 94.2 % (93.0-99.0); Arterial HCO3 21.1 mmol/L (22.0-26.0); Arterial MetHb 0.3 % (0.0-1.5); Arterial Total Hemglobin 11.7 g/dl (12.0-18.0); Arterial pCO2 64.2 mmhg (35-45); MODE VENT - PC; Site Right Radial
[2017-09-11] MEDS: ENOXAPARIN 100 MG/ML SYG SC ×2 (08:17→21:16)
[2017-09-11] MEDS: INSULIN GLARGINE [LANtus] 3 ML PEN SC ×2 (08:18→20:29)
[2017-09-11] MEDS: CEFEPIME 1GM/50 ML (PMX) 50 ML IVPB (08:19)
[2017-09-11] MEDS: METHYLPREDNISOLONE 125 MG INJ IV (08:19)
[2017-09-11] MEDS: FAMOTIDINE 20 MG TAB NGT (08:19)
[2017-09-11] MEDS: BALSAM PERU/CASTOR OIL 60 GM TUBE TOP (08:30)
[2017-09-11] MEDS: VANCOMYCIN 1 GM 250 ML IVPB (09:14)
[2017-09-11] MEDS: LORAZEPAM 2 MG INJ IV ×6 (09:34→22:16)
[2017-09-11] MEDS: FUROSEMIDE 40 MG INJ IV (10:59)
[2017-09-11] MEDS: SODIUM CHLORIDE 0.45% 500 ML BAG IV* ×2 (15:01→20:00)
[2017-09-11] MEDS: SOD CHLORIDE 0.45% 1,000 ML IV (15:01)
[2017-09-11 17:49] LABS: ANION GAP 18 (8-16); BLOOD UREA NITROGEN 97 mg/dl (7-20); CALCIUM 6.7 mg/dl (8.4-10.2); CARBON DIOXIDE 20 mmol/L (21-31); CHLORIDE 110 mmol/L (97-110); GLUCOSE 166 mg/dl (70-220); POTASSIUM 5.3 mmol/L (3.5-5.1); SODIUM 143 mmol/L (135-144)
[2017-09-11 17:58] LABS: CREATININE 3.65 mg/dl (0.61-1.24)
[2017-09-11 21:03] LABS: ALANINE AMINOTRANSFERASE 100 IU/L (13-69); ALBUMIN 2.9 g/dl (3.3-4.9); ALBUMIN/GLOBULIN RATIO 0.85; ALKALINE PHOSPHATASE 81 IU/L (42-121); ANION GAP 18 (8-16); ASPARTATE AMINO TRANSFERASE 65 IU/L (15-46); BLOOD UREA NITROGEN 101 mg/dl (7-20); CALCIUM 7.3 mg/dl (8.4-10.2); CARBON DIOXIDE 20 mmol/L (21-31); CHLORIDE 109 mmol/L (97-110); GLUCOSE 135 mg/dl (70-220); POTASSIUM 5.4 mmol/L (3.5-5.1); SODIUM 142 mmol/L (135-144); TOTAL PROTEIN 6.3 g/dl (6.1-8.1)
[2017-09-11] MEDS: ATORVASTATIN 40 MG TAB PO (21:08)
[2017-09-11 21:19] LABS: CREATININE 3.94 mg/dl (0.61-1.24)
[2017-09-11 21:46] LABS: SODIUM,URINE RANDOM 49 mmol/L (30-90)
[2017-09-11 21:48] LABS: OSMOLALITY,URINE 349 mOsm/kg (250-1200)
[2017-09-11 21:56] LABS: ADD UMIC YES; UR AMORPHOUS CRYSTAL MODERATE /HPF (NONE SEEN); UR ASCORBIC ACID NEGATIVE (NEGATIVE); UR BACTERIA FEW /HPF (NONE SEEN); UR BILIRUBIN (Dip) NEGATIVE (NEGATIVE); UR BLOOD (Dip) 3+ mg/dL (NEGATIVE); UR CLARITY TURBID (CLEAR); UR COLOR YELLOW (YELLOW); UR GLUCOSE (Dip) NEGATIVE (NEGATIVE); UR KETONES (Dip) NEGATIVE (NEGATIVE); UR LEUKOCYTE ESTERASE (Dip) NEGATIVE Leu/ul (NEGATIVE); UR NITRITE (Dip) NEGATIVE (NEGATIVE); UR RBC 38 /HPF (0-5); UR SPECIFIC GRAVITY (Dip) 1.012 (1.003-1.030); UR TOTAL PROTEIN (Dip) 2+ mg/dl (NEGATIVE); UR UROBILINOGEN (Dip) NEGATIVE (NEGATIVE); UR WBC 6 /HPF (0-5)
[2017-09-12 00:20] LABS: AADO2 Arterial 576.8 mmHg (7.0-24.0); Allen Test ACCEPTAB; Arterial Base Excess -9.9 mmol/L (-3.0-3); Arterial Blood Gas Oxygen Sat 83.3 mmHG (95.0-98.0); Arterial COHb 0.2 % (0.0-3.0); Arterial Fraction of Oxyhgb 82.9 % (93.0-99.0); Arterial HCO3 21.4 mmol/L (22.0-26.0); Arterial MetHb 0.3 % (0.0-1.5); Arterial Total Hemglobin 11.9 g/dl (12.0-18.0); Arterial pCO2 77.2 mmhg (35-45); MODE VENT - PC; Site Right Radial
[2017-09-12] MEDS: ACCU-CHEK XX ×24 (01:00→23:07)
[2017-09-12] MEDS: VECURONIUM 100 MG in DEXTROSE 5% 100 ML IV ×3 (01:34→17:46)
[2017-09-12] MEDS: FENTAnyl (DRIP) 1000 mcg/100mL 100 ML IV ×2 (02:56→11:07)
[2017-09-12] MEDS: NORepinephrine 32 MG in DEXTROSE 5% 218 ML IV (02:56)
[2017-09-12] MEDS: INSULIN HUMAN REGULAR 100 UNIT in SOD CHLORIDE 0.9% 99 ML IV ×2 (02:58→17:45)
[2017-09-12] MEDS: MIDAZOLAM (DRIP) 50 mg/50 mL 50 ML IV ×5 (04:12→23:36)
[2017-09-12] MEDS: SOD CHLORIDE 0.45% 1,000 ML IV (04:21)
[2017-09-12 05:03] LABS: ADD MAN DIFF? NO
[2017-09-12 05:06] LABS: ABNORMAL IP MESSAGE 1; BASOPHILS % 0.1 % (0.0-2.0); EOSINOPHILS # 0.1 10^3/ul (0.0-0.5); EOSINOPHILS % 0.3 % (0.0-7.0); HEMATOCRIT 29.7 % (42.0-52.0); HEMOGLOBIN 9.4 g/dl (14.0-18.0); LYMPHOCYTES # 0.8 10^3/ul (0.8-2.9); LYMPHOCYTES % 3.9 % (15.0-51.0); MEAN CORPUSCULAR HEMOGLOBIN 29.7 pg (29.0-33.0); MEAN CORPUSCULAR HGB CONC 31.6 g/dl (32.0-37.0); MEAN CORPUSCULAR VOLUME 93.7 fl (82.0-101.0); MEAN PLATELET VOLUME 13.2 fl (7.4-10.4); MONOCYTE # 0.8 10^3/ul (0.3-0.9); MONOCYTES % 3.6 % (0.0-11.0); NEUTROPHIL # 19.2 10^3/ul (1.6-7.5); NEUTROPHILS % 88.7 % (39.0-77.0); PLATELET COUNT 170 10^3/UL (140-415); POSITIVE DIFF @See below; RED BLOOD COUNT 3.17 10^6/ul (4.70-6.10); RED CELL DISTRIBUTION WIDTH 15.9 % (11.5-14.5)
[2017-09-12 05:06] LABS: WHITE BLOOD COUNT 21.6 10^3/ul (4.8-10.8)
[2017-09-12 05:43] LABS: AMYLASE 119 U/L (11-123)
[2017-09-12 07:13] LABS: ANION GAP 18 (8-16); BLOOD UREA NITROGEN 110 mg/dl (7-20); CALCIUM 7.4 mg/dl (8.4-10.2); CARBON DIOXIDE 18 mmol/L (21-31); CHLORIDE 110 mmol/L (97-110); GLUCOSE 175 mg/dl (70-220); MAGNESIUM 2.3 mg/dl (1.7-2.5); POTASSIUM 5.2 mmol/L (3.5-5.1); SODIUM 141 mmol/L (135-144)
[2017-09-12 07:35] LABS: CREATININE 4.73 mg/dl (0.61-1.24)
[2017-09-12] MEDS ORDERED: FUROSEMIDE 40 MG INJ IV (08:00)
[2017-09-12 08:29] LABS: AADO2 Arterial 585.4 mmHg (7.0-24.0); Allen Test ACCEPTAB; Arterial Base Excess -7.9 mmol/L (-3.0-3); Arterial Blood Gas Oxygen Sat 95.5 mmHG (95.0-98.0); Arterial COHb 0.3 % (0.0-3.0); Arterial Fraction of Oxyhgb 94.9 % (93.0-99.0); Arterial HCO3 18.5 mmol/L (22.0-26.0); Arterial MetHb 0.3 % (0.0-1.5); Arterial Total Hemglobin 10.4 g/dl (12.0-18.0); Arterial pCO2 41.2 mmhg (35-45); MODE VENT - PC; Site Right Radial
[2017-09-12] MEDS: FAMOTIDINE 20 MG TAB NGT (09:00)
[2017-09-12] MEDS: BALSAM PERU/CASTOR OIL 60 GM TUBE TOP (09:14)
[2017-09-12] MEDS: METHYLPREDNISOLONE 40 MG INJ IV (09:14)
[2017-09-12] MEDS: VANCOMYCIN 1 GM 250 ML IVPB (09:15)
[2017-09-12] MEDS: ENOXAPARIN 100 MG/ML SYG SC (09:16)
[2017-09-12] MEDS: INSULIN GLARGINE [LANtus] 3 ML PEN SC ×2 (09:23→20:52)
[2017-09-12] MEDS: CEFEPIME 1GM/50 ML (PMX) 50 ML IVPB (09:26)
[2017-09-12] MEDS: VANCO TROUGH AT XX (10:00)
[2017-09-12] MEDS ORDERED: HEPARIN 1000 UNITS/ML 10 ML INJ (11:09)
[2017-09-12 11:58] LABS: VANCOMYCIN,TROUGH 21.3 ug/ml (10.0-20.0)
[2017-09-12] MEDS ORDERED: ACETAMINOPHEN 1000MG/100ML IV 100 ML IVPB (13:30)
[2017-09-12 13:34] LABS: PLATELET COUNT 170 10^3/UL (140-415)
[2017-09-12 13:36] LABS: INR 1.41; PROTIME 17.5 Sec (11.9-14.9); PT RATIO 1.4
[2017-09-12 13:37] LABS: PARTIAL THROMBOPLASTIN TIME 56.8 Sec (25.0-35.0)
[2017-09-12 13:58] LABS: THROMBIN TIME 30.3 SEC (13.8-19.1)
[2017-09-12 14:14] LABS: D-DIMER 7178.58 ng/ml (<460)
[2017-09-12 14:17] LABS: FIBRIN SPLIT PRODUCT <10 ug/ml (<10)
[2017-09-12] MEDS: CASPOFUNGIN 70 MG in SOD CHLORIDE 0.9% 250 ML IVPB (16:19)
[2017-09-12] MEDS: MEROPENEM 500MG/50 ML (PMX) 50 ML IVPB (20:39)
[2017-09-12] MEDS: ATORVASTATIN 40 MG TAB PO (20:55)
[2017-09-13] MEDS: ACCU-CHEK XX ×14 (01:07→13:29)
[2017-09-13] MEDS: MIDAZOLAM (DRIP) 50 mg/50 mL 50 ML IV ×2 (05:09→11:13)
[2017-09-13] MEDS: VECURONIUM 100 MG in DEXTROSE 5% 100 ML IV ×2 (05:31→13:26)
[2017-09-13] MEDS ORDERED: EPINEPHrine 0.1 MG/ML SYG (07:00)
[2017-09-13] MEDS ORDERED: NA BICARBONATE 8.4% 50 ML SYG (07:00)
[2017-09-13 08:29] LABS: ADD MAN DIFF? NO
[2017-09-13] MEDS: INSULIN GLARGINE [LANtus] 3 ML PEN SC (08:32)
[2017-09-13 08:45] LABS: BASOPHILS % 0.1 % (0.0-2.0); EOSINOPHILS # 0.4 10^3/ul (0.0-0.5); EOSINOPHILS % 1.8 % (0.0-7.0); HEMATOCRIT 26.5 % (42.0-52.0); HEMOGLOBIN 8.3 g/dl (14.0-18.0); LYMPHOCYTES # 1.2 10^3/ul (0.8-2.9); MEAN CORPUSCULAR HEMOGLOBIN 28.7 pg (29.0-33.0); MEAN CORPUSCULAR HGB CONC 31.3 g/dl (32.0-37.0); MEAN CORPUSCULAR VOLUME 91.7 fl (82.0-101.0); MEAN PLATELET VOLUME 12.5 fl (7.4-10.4); MONOCYTES % 4.8 % (0.0-11.0); NEUTROPHILS % 83.3 % (39.0-77.0); NUCLEATED RED BLOOD CELLS% 0.1 /100WBC (0.0-0.0); PLATELET COUNT 145 10^3/UL (140-415); RED BLOOD COUNT 2.89 10^6/ul (4.70-6.10); RED CELL DISTRIBUTION WIDTH 15.7 % (11.5-14.5)
[2017-09-13 08:45] LABS: WHITE BLOOD COUNT 20.4 10^3/ul (4.8-10.8)
[2017-09-13 09:00] LABS: ANION GAP 19 (8-16); BLOOD UREA NITROGEN 89 mg/dl (7-20); CARBON DIOXIDE 22 mmol/L (21-31); CHLORIDE 105 mmol/L (97-110); GLUCOSE 118 mg/dl (70-220); POTASSIUM 5.2 mmol/L (3.5-5.1); SODIUM 141 mmol/L (135-144)
[2017-09-13 09:12] LABS: CREATININE 4.47 mg/dl (0.61-1.24)
[2017-09-13 09:13] LABS: AADO2 Arterial 527.4 mmHg (7.0-24.0); Allen Test ACCEPTAB; Arterial Base Excess -6.6 mmol/L (-3.0-3); Arterial Blood Gas Oxygen Sat 84.6 mmHG (95.0-98.0); Arterial COHb 0.2 % (0.0-3.0); Arterial Fraction of Oxyhgb 84.2 % (93.0-99.0); Arterial HCO3 21.5 mmol/L (22.0-26.0); Arterial MetHb 0.3 % (0.0-1.5); Arterial Total Hemglobin 12.1 g/dl (12.0-18.0); Arterial pCO2 54.4 mmhg (35-45); MODE VENT - PC; Site Right Radial
[2017-09-13] MEDS: FAMOTIDINE 20 MG TAB NGT (09:30)
[2017-09-13] MEDS: METHYLPREDNISOLONE 40 MG INJ IV (09:30)
[2017-09-13] MEDS: MEROPENEM 500MG/50 ML (PMX) 50 ML IVPB (09:31)
[2017-09-13] MEDS: BALSAM PERU/CASTOR OIL 60 GM TUBE TOP (09:31)
[2017-09-13] MEDS: HEPARIN 5,000 UNIT/0.5 ML VIAL SC (09:34)
[2017-09-13] MEDS: SOD CHLORIDE 0.45% 1,000 ML IV (11:37)
[2017-09-13] MEDS ORDERED: CASPOFUNGIN 50 MG in SOD CHLORIDE 0.9% 250 ML IVPB (16:00)
== END 2017-09-13 14:53 | disposition expired | DRG 870 ==
LOC: ICU 13:32 → E/R 11:32
PROC: 5A09357 Assistance with Respiratory Ventilation, Less than 24 Consecutive Hours, Continuous Positive Airway Pressure (ICD-10-PCS; 2017-08-25)
PROC: 5A1955Z Respiratory Ventilation, Greater than 96 Consecutive Hours (ICD-10-PCS; 2017-08-26)
PROC: 0BH17EZ Insertion of Endotracheal Airway into Trachea, Via Natural or Artificial Opening (ICD-10-PCS; 2017-08-26)
PROC: 02HV33Z Insertion of Infusion Device into Superior Vena Cava, Percutaneous Approach (ICD-10-PCS; principal; 2017-08-28)
PROC: 0W9930Z Drainage of Right Pleural Cavity with Drainage Device, Percutaneous Approach (ICD-10-PCS; 2017-09-04)
PROC: 03HB33Z Insertion of Infusion Device into Right Radial Artery, Percutaneous Approach (ICD-10-PCS; 2017-09-04)
PROC: 06HM33Z Insertion of Infusion Device into Right Femoral Vein, Percutaneous Approach (ICD-10-PCS; 2017-09-12)
PROC: 5A1D70Z Performance of Urinary Filtration, Intermittent, Less than 6 Hours Per Day (ICD-10-PCS; 2017-09-13)
DX: A41.01 Sepsis due to Methicillin susceptible Staphylococcus aureus (principal); R65.21 Severe sepsis with septic shock; J96.01 Acute respiratory failure with hypoxia; J96.02 Acute respiratory failure with hypercapnia; J15.211 Pneumonia due to Methicillin susceptible Staphylococcus aureus; N17.9 Acute kidney failure, unspecified; E87.0 Hyperosmolality and hypernatremia; I42.9 Cardiomyopathy, unspecified; Z68.43 Body mass index [BMI] 50.0-59.9, adult; E87.2 Acidosis; J80 Acute respiratory distress syndrome; J93.9 Pneumothorax, unspecified; E66.01 Morbid (severe) obesity due to excess calories; E11.65 Type 2 diabetes mellitus with hyperglycemia; I12.9 Hypertensive chronic kidney disease with stage 1 through stage 4 chronic kidney disease, or unspecified chronic kidney disease; N18.9 Chronic kidney disease, unspecified; E11.22 Type 2 diabetes mellitus with diabetic chronic kidney disease
CPT/HCPCS: 36415; 36569; 36600; 71045; 71250; 76937; 80048; 80053; 80061; 80076; 80202; 80307; 81001; 82150; 82803; 82962; 83036; 83605; 83690; 83735; 83880; 83935; 84100; 84300; 84439; 84443; 84484; 85025; 85049; 85362; 85378; 85384; 85610; 85670; 85730; 86635; 86641; 86703; 86704; 86709; 86803; 87040; 87070; 87075; 87081; 87086; 87275; 87276; 87279; 87280; 87340; 87400; 87502; 89220; 90935; 92950; 93005; 93306; 93970; 94003; 94640; 94644; 94660; 94770; 96361; 96365; 96366; 96367; 96372; 96375; 96376; 99291-25